=== PATIENT | female | born 1985 | race American Indian/Alaskan Native ===

== ENCOUNTER 2020-07-15 17:45 | Emergency (ER) | payer OTHER, SELFPAY ==
--- NOTE | ~2020-07-15 | XR_ITS ---
EXAMINATION: XR LUMBOSACRAL SPINE CLINICAL INFORMATION: Pain. COMPARISON: None TECHNIQUE: Three views of the lumbosacral spine. FINDINGS: There are 6 [id number] lumbar-type vertebral bodies, likely indicating lumbarization of S1. Straightening of the normal lumbar lordosis, which may be positional or related to muscular spasm. No acute fracture or subluxation. No loss of vertebral body or intervertebral disc height. No lytic or blastic osseous lesion. No abnormal soft tissue calcification. XR/XR lumbar spine 2-3V IMPRESSION: Straightening of the normal lumbar lordosis, which may be positional or related to muscular spasm.
[2020-07-15 17:52] VITALS: BP 106/64; PULSE 105; RESP 18; TEMP 36.7; O2SAT 97
[2020-07-15 18:37] VITALS: BP 112/74; PULSE 109; RESP 16; TEMP 37; O2SAT 100; BMI 19.3
[2020-07-15] MEDS: Ketorolac Tromethamine 30 MG/ML VIAL IM (19:20)
[2020-07-15] MEDS: Lidocaine 4 % Patch ADH..PATCH 1 PATCH TRANSDERMA (19:21)
[2020-07-15] MEDS: oxyCODONE HCl Immed Release 5 MG TABLET PO (19:21)
[2020-07-15 20:00] VITALS: BP 108/66; PULSE 88; RESP 16; TEMP 36.6; O2SAT 98
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
== END 2020-07-15 20:46 | disposition home or self-care (01) ==
PROVIDERS: Emergency Provider Internal Medicine
DX: S39.012A Strain of muscle, fascia and tendon of lower back, initial encounter (principal); X58.XXXA Exposure to other specified factors, initial encounter; Y93.9 Activity, unspecified; Y92.9 Unspecified place or not applicable; Y99.9 Unspecified external cause status; Z79.899 Other long term (current) drug therapy; F17.200 Nicotine dependence, unspecified, uncomplicated; Z71.6 Tobacco abuse counseling
CPT/HCPCS: 72100; 96372; 99284; J1885

== ENCOUNTER 2020-08-11 22:19 | Emergency (ER) | payer OTHER, SELFPAY ==
--- NOTE | ~2020-08-11 | XR_ITS ---
EXAMINATION: CHEST 1 VIEW CLINICAL INFORMATION: Asthma exacerbation. COMPARISON: None. TECHNIQUE: An AP view of the chest is provided. FINDINGS: The cardiac silhouette is not enlarged. The mediastinal and hilar contours are unremarkable. There are neither pleural effusions nor pneumothoraces. There are no consolidations. The osseous structures are unremarkable. XR/XR chest 1V IMPRESSION: No evidence for acute disease.
[2020-08-11 22:21] VITALS: BP 127/89; PULSE 112; RESP 24; TEMP 35.8; O2SAT 100; BMI 20.5
[2020-08-11] MEDS: Albuterol Sulfate 90 MCG 8 GM INHALER 2 PUFF INHALE (22:29)
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
[2020-08-11] MEDS: methylPREDNISolone Sod Succ 125 MG/2 ML VIAL IVPUSH (22:42)
[2020-08-11] MEDS: Magnesium Sulfate/H2O 2 GM/50 ML PIGGYBACK IV (22:46)
--- NOTE | 2020-08-11 22:48 | PC.NURSE ---
magneium infused per sob protocol
--- NOTE | 2020-08-11 23:19 | ED.SOB ---
HPI - SOB/Dyspnea General Chief Complaint: Dyspnea Stated Complaint: Asthma Time Seen by Provider: 08/11/20 22:25 Source: patient Mode of arrival: ambulatory Limitations: no limitations History of Present Illness HPI Narrative: 35-year-old female presents with shortness of breath consistent with asthma exacerbation. States that she has been short of breath for about 3 days, has been using her albuterol inhaler with poor effect. MD elicited complaint: shortness of breath and cough Pertinent past history: asthma Onset (ago): day(s) (3) Timing: progressively worsening Severity: moderate Exacerbating factors: exertion and coughing Relieving factors: nothing Known history of: asthma Associated symptoms: denies other symptoms Treatment prior to arrival: bronchodilator Related Data Home oxygen amount: none Home Medications Medication Instructions Recorded Confirmed albuterol sulfate 1 vial INHALATION Q4H PRN 08/11/20 08/11/20 Previous Rx's Medication Instructions Recorded cyclobenzaprine 5 mg PO TID PRN #14 tab 07/15/20 ibuprofen 800 mg PO Q8H PRN #30 tab 07/15/20 lidocaine 1 patch TOPICAL Q24H PRN #15 ea 07/15/20 methylprednisolone [Medrol] 4 mg PO DAILY #7 tab 07/15/20 benzonatate [Tessalon Perles] 100 mg PO TID PRN #20 cap 08/12/20 prednisone 60 mg PO DAILY 5 Days #15 tab 08/12/20 Allergies Allergy/AdvReac Type Severity Reaction Status Date / Time penicillin V Allergy Unknown hives Verified 01/27/17 00:00 nicotine AdvReac Unknown tachycardia Verified 01/27/17 00:00 Review of Systems Review of Systems: Constitutional: No Fever, No Chills ENT/Mouth: No Hoarseness, No sore throat, No Rhinorrhea Eyes: No Redness, No Discharge, No Vision Changes Cardiovascular: No Chest Pain, positive SOB, positive Dyspnea on Exertion, No Edema Respiratory: positive Cough, No Sputum, positive Wheezing, Gastrointestinal: No Nausea, No Vomiting, No Diarrhea, No abdominal Pain Genitourinary: No Dysuria, No Hematuria Musculoskeletal: No joint pain, No Myalgias Skin: No rash Neuro: No Weakness, No Numbness, No Headache Psych: No anxiety, depression Heme/Lymph: No Bruising, No Bleeding Endocrine: No Polyuria, No Polydipsia Yes all other systems are reviewed and are negative PMFSH Past Medical History Attestation statement: The following information was validated with the patient. Source: old records reviewed Medical History Anxiety Asthma Back pain Migraine Social History Social History Smoking Status: Current every day smoker Advance Directives: No Physical Exam Vital Signs: Vital Signs: Last Vital Signs Temp 98.0 F 08/12/20 00:29 Pulse 100 08/12/20 00:29 Resp 16 08/12/20 00:29 BP 104/74 08/12/20 00:29 Pulse Ox 100 08/12/20 00:29 Body Mass Index 20.5 Appearance: Alert. Oriented X3. Moderate distress. Eyes: Pupils equal, round and reactive to light. ENT: Pharynx normal. Neck: Normal inspection. Neck supple. CVS: Tachycardic heart rate and rhythm. Pulses normal. Respiratory: Tachypneic No respiratory distress. Inspiratory and expiratory wheezing to all lobes with poor air movement Abdomen: Soft and nontender. Skin: Skin warm and dry. Normal skin color. Normal skin turgor. Extremities: No lower extremity edema. Neuro: No motor deficit. No sensory deficit. Course Course Course Narrative: 35-year-old female presents with asthma exacerbation. Plan of care is for ACS rule out, chest x-ray, Solu-Medrol, magnesium, and updraft. Approximately 30 minutes after updraft patient continues to cough, will order Benadryl, Robitussin AC, and Tessalon Perles. Airflow has improved. X-rays are negative, patient no longer coughing, no longer tachypneic respiratory rate at 16, even unlabored, tachycardic secondary to multiple albuterol inhalers use. Patient was referred to pulmonology Dr. Thomson as she may need further management for asthma. Patient verbalized understanding of and agrees plan of care discharge home. MDM - SOB/Dyspnea Differential Diagnosis Differential diagnosis: Likely acute exacerbation of chronic obstructive airways disease and pneumonia Medical Records Attestation: I reviewed the patient's medical records. Lab Data Attestation: I reviewed the patient's lab results. Imaging Data Chest x-ray: Attestation: I personally reviewed and interpreted this imaging study as follows: Radiologist's impression: EXAMINATION: CHEST 1 VIEW CLINICAL INFORMATION: Asthma exacerbation. COMPARISON: None. TECHNIQUE: An AP view of the chest is provided. FINDINGS: The cardiac silhouette is not enlarged. The mediastinal and hilar contours are unremarkable. There are neither pleural effusions nor pneumothoraces. There are no consolidations. The osseous structures are unremarkable. XR/XR chest 1V IMPRESSION: No evidence for acute disease. Discharge Plan Discharge Clinical Impression: Asthma with exacerbation Qualifiers: Asthma severity: moderate Asthma persistence: persistent Qualified Code(s): J45.41 - Moderate persistent asthma with (acute) exacerbation Patient Disposition: Home, Self-Care Instructions: Asthma (ED) Additional Instructions: Te evaluaron para detectar la exacerbaci?n del asma. Por favor, utilice nebulizador de albuterol e inhalador seg?n sea necesario para la dificultad para respirar. [place]?n Perles seg?n sea necesario para la tos. Por favor, siga las instrucciones, no tome m?s de 3 comprimidos en un per?odo de 24 horas. Por favor tome prednisona 60 mg vivian los pr?ximos 5 d?as. Por favor, considere hacer un seguimiento de la neumolog?a, Dr. Hummel?eliu, ya que es posible que necesite un mejor manejo del asma. Дмитрий por elegir nancie departamento de emergencias para rascon evaluaci?n. Por favor, yolanda un seguimiento con el m?dico de atenci?n primaria seg?n sea necesario. Regrese al servicio de emergencias para cualquier s?ntoma nuevo, preocupante o que empeore. You were evaluated for asthma exacerbation. Please use albuterol nebulizer and inhaler as needed for shortness of breath. Take Tessalon Perles as needed for cough. Please follow the directions, do not take more than 3 tablets in 24 hour period. Please take prednisone 60 mg for the next 5 days. Please consider following up with pulmonology, Dr. Thomson, as you may need better asthma management. Thank you for choosing this emergency department for evaluation. Please follow-up with primary care physician as needed. Return to the emergency department for any new, concerning, or worsening symptoms. Prescriptions: New benzonatate [Tessalon Perles] 100 mg capsule 100 mg PO TID PRN (Reason: cough) Qty: 20 RF: 0 prednisone 20 mg tablet 60 mg PO DAILY 5 Days Qty: 15 RF: 0 No Action lidocaine 4 % adhesive patch,medicated 1 patch topical Q24H PRN (Reason: pain) Qty: 15 RF: 0 ibuprofen 800 mg tablet 800 mg PO Q8H PRN (Reason: pain) Qty: 30 RF: 0 cyclobenzaprine 5 mg tablet 5 mg PO TID PRN (Reason: muscle spasm) Qty: 14 RF: 0 methylprednisolone [Medrol] 4 mg tablet 4 mg PO DAILY Qty: 7 RF: 0 albuterol sulfate 0.63 mg/3 mL solution for nebulization 1 vial inhalation Q4H PRN (Reason: wheezing) RF: 0 Referrals: Sudhakar Thomson MD [Physician] - 2 days (Asthma exacerbation, poor management) Interventions: ED Discharge Assessment Last Done: 08/12/20 01:52 Discharge Date/Time: 08/12/20 00:44
[2020-08-12] MEDS: Benzonatate 100 MG CAPSULE 200 MG PO (00:24)
[2020-08-12] MEDS: diphenhydrAMINE HCL 50 MG/ML VIAL 25 MG IVPUSH (00:24)
[2020-08-12] MEDS: guaiFEN/Codeine SF 200/20/10ML 10 ML LIQUID PO (00:24)
[2020-08-12 00:29] VITALS: BP 104/74; PULSE 100; RESP 16; TEMP 36.7; O2SAT 100
--- NOTE | 2020-08-12 01:51 | PC.NURSE ---
PT CALM AFTER MEDICATION ADMINISTRATION PT SPO2 100 ON RA. PT FEELS MORE RELAXED AT THIS TIME AND HER COUGH FIT STOPPED. 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
== END 2020-08-12 00:44 | disposition home or self-care (01) ==
PROVIDERS: Emergency Provider Emergency Medicine
DX: J45.41 Moderate persistent asthma with (acute) exacerbation (principal); Z79.899 Other long term (current) drug therapy; F17.200 Nicotine dependence, unspecified, uncomplicated
CPT/HCPCS: 71045; 96365; 96374; 96375; 99284; J1200; J2930; J3475

== ENCOUNTER 2020-08-14 21:15 | Emergency (ER) | payer OTHER, SELFPAY ==
[2020-08-14 21:53] VITALS: BP 133/81; PULSE 109; RESP 18; TEMP 37; O2SAT 100; BMI 17.7
[2020-08-14 23:49] LABS: COVID-19 Test Negative (Negative); IDNOW Serial# 9DD0AD1C
== END 2020-08-14 23:27 | disposition left against medical advice (07) ==
PROVIDERS: Emergency Provider Emergency Medicine
DX: R05 Cough (principal); Z20.822 Contact with and (suspected) exposure to COVID-19
CPT/HCPCS: 36415; 87635; 99282

== ENCOUNTER 2020-09-28 13:21 | Emergency (ER) | payer OTHER, SELFPAY ==
[2020-09-28 14:22] VITALS: BP 105/61; PULSE 83; RESP 18; TEMP 36.8; O2SAT 100; BMI 20.1
[2020-09-28 15:00] LABS: COVID-19 Test Negative (Negative)
[2020-09-28] MEDS: 0.9 % Sodium Chloride 1,000 ML 999 ML IVCONT (16:01)
[2020-09-28] MEDS: ondansetron HCL 4 MG/2 ML VIAL IVPUSH (16:02)
[2020-09-28 16:09] LABS: MANUAL DIFF FLAG NO
[2020-09-28 16:18] LABS: Basophils Absolute Auto 0.1 X10*3/uL (0.0-0.2); Basophils Percent Auto 1.1 % (0-2); Eosinophils Absolute Auto 0.5 X10*3/uL (0.0-0.4); Eosinophils Percent Auto 9.5 % (0-4); Hemoglobin 12.4 g/dl (12.0-16.0); Imm Gran Abs Auto 0.01 X10*3/uL (0.00-0.03); Imm Gran Pct Auto 0.2 % (0.0-0.4); Lymphocytes Absolute Auto 1.7 X10*3/uL (1.2-4.9); Lymphocytes Percent Auto 32.9 % (20-40); Mean Corpuscular HGB Conc 31.8 g/dl (31.0-35.0); Mean Corpuscular Hemoglobin 27.4 pg (27.0-33.0); Mean Corpuscular Volume 86.1 fL (80-98); Mean Platelet Volume 12.5 fL (9.4-12.3); Monocytes Absolute Auto 0.5 X10*3/uL (0.1-1.2); Monocytes Percent Auto 9.8 % (2-11); Neutrophils Absolute Auto 2.5 X10*3/uL (2.0-8.3); Neutrophils Percent Auto 46.5 % (45-73); Platelet Count 248 X10*3/uL (160-400); Red Blood Count 4.53 X10*6/uL (4.20-5.50); Red Cell Distribution Width 13.2 % (11.0-16.0); White Blood Count 5.3 X10*3/uL (4.8-10.8)
--- NOTE | 2020-09-28 16:31 | ED.NAVMDI ---
HPI - Nausea/Vomiting/Diarrhea General Chief complaint: Nausea/Vomiting/Diarrhea Stated complaint: ABD PAIN HAVEN'T EATEN Time Seen by Provider: 09/28/20 14:55 Source: patient Mode of arrival: ambulatory History of Present Illness HPI Narrative: 35-year-old female with a past medical history of anxiety, asthma, migraines, tubal ligation, ectopic , presenting to the ED complaining of generalized fatigue, lower abdominal discomfort, nausea, vomiting, and decreased p.o. intake x2 weeks. Admits has recently been sexually active with new partner, is 1 week late for menstrual cycle. Admits had 2 ectopic pregnancies S/P tubal ligation, and this feels similar to prior episodes. Denies fever, chills, dysuria/hematuria, diarrhea/constipation, vaginal bleeding/discharge MD elicited complaint: nausea, vomiting and abdominal pain Related Data Home Medications Medication Instructions Recorded Confirmed albuterol sulfate 1 vial INHALATION Q4H PRN 08/11/20 08/11/20 Previous Rx's Medication Instructions Recorded cyclobenzaprine 5 mg PO TID PRN #14 tab 07/15/20 ibuprofen 800 mg PO Q8H PRN #30 tab 07/15/20 lidocaine 1 patch TOPICAL Q24H PRN #15 ea 07/15/20 methylprednisolone [Medrol] 4 mg PO DAILY #7 tab 07/15/20 benzonatate [Tessalon Perles] 100 mg PO TID PRN #20 cap 08/12/20 prednisone 60 mg PO DAILY 5 Days #15 tab 08/12/20 famotidine [Pepcid] 20 mg PO DAILY #14 tab 09/28/20 ondansetron HCl [Zofran] 4 mg PO Q8H PRN #10 tab 09/28/20 Allergies Allergy/AdvReac Type Severity Reaction Status Date / Time penicillin V Allergy Unknown hives Verified 09/28/20 14:22 nicotine AdvReac Unknown tachycardia Verified 09/28/20 14:22 Review of Systems Review of Systems: Constitutional: No Fever, + Chills, + Fatigue, No Malaise Cardiovascular: No Chest Pain, No SOB, No Edema, No Palpitations Respiratory: No Cough, No Sputum, No Dyspnea Gastrointestinal: + Nausea, + Vomiting, No Diarrhea, No Constipation, + Abdominal pain, No Hematochezia, No Melena Genitourinary: No Dysuria, No Urinary Frequency, No Hematuria, No Urinary Incontinence, No Urgency, No Flank Pain Musculoskeletal: No joint pain, No Myalgias, No Joint Swelling Skin: No Skin Lesions, No rash Neuro: + Weakness, No Numbness, No Headache Yes all other systems are reviewed and are negative [facility] Past Medical History Attestation statement: The following information was validated with the patient. Medical History Anxiety Asthma Back pain Migraine Social History Social History Advance Directives: Yes Advance Directives Information Provided: No Advance Directives on File: No Patient : No Physical Exam Vital Signs: Vital Signs: Last Vital Signs Temp 98.4 F 09/28/20 18:15 Pulse 68 09/28/20 18:15 Resp 18 09/28/20 18:15 BP 108/69 09/28/20 18:15 Pulse Ox 100 09/28/20 14:22 Body Mass Index 20.1 Const: General: cooperative and healthy appearing Orientation/consciousness: patient oriented x3 Limitations: no limitations HENMT: Head: Yes normal to inspection Ears: hearing grossly normal bilaterally General nose exam: Normal external nose present Face and sinus: Yes normal facial exam Eyes: General: appearance normal, both eyes and all related structures EOM: EOMs intact bilaterally Neck: Neck: Yes normal visual inspection and Yes no meningeal signs Resp: Effort & Inspection: normal respiratory effort Cardio: Rate: regular rate GI: Inspection: Yes normal to inspection Palpation (GI): Soft to palpation, nontender, no guarding and not rigid : General: Yes no CVA tenderness Back/Spine/Pelvis: Back: no CVA tenderness Skin: Rashes: no rashes Wounds: no wounds Neuro: General: patient oriented x3 and no meningeal signs Gait exam (Neuro): Normal gait present Extrem: General: Yes normal to inspection Course Course Course Narrative: -No leukocytosis, H&H stable, labs otherwise unremarkable, beta quant negative XR chest 1V IMPRESSION: No evidence for acute disease. >> results discussed with patient including worrisome signs and symptoms and strict return precautions. Patient tolerated p.o. melvina yuridia and a Big Mac from [employer] in the ED without any nausea or vomiting MDM - Nausea/Vomiting/Diarrhea MDM Narrative Medical decision making narrative: 35-year-old female with a past medical history of anxiety, asthma, migraines, tubal ligation, ectopic , presenting to the ED complaining of generalized fatigue, lower abdominal discomfort, nausea, vomiting, and decreased p.o. intake x2 weeks. On exam VSS, NAD/nontoxic appearing, abdomen is soft/nontender, no CVAT. Concern for ectopic vs dehydration vs gastroenteritis. Rule out UTIs/infectious etiology Plan: Labs, UA, , IVF, symptomatic treatment, reassess Lab Data Result diagrams: 09/28/20 16:01 09/28/20 16:01 Labs: Lab Results 09/28/20 09/28/20 09/28/20 Range/Units 14:26 16:01 16:01 WBC 5.3 (4.8-10.8) X10*3/uL RBC 4.53 (4.20-5.50) X10*6/uL Hgb 12.4 (12.0-16.0) g/dl Hct 39.0 (37-47) % MCV 86.1 (80-98) fL MCH 27.4 (27.0-33.0) pg MCHC 31.8 (31.0-35.0) g/dl RDW 13.2 (11.0-16.0) % Plt Count 248 (160-400) X10*3/uL MPV 12.5 H (9.4-12.3) fL Immature Gran % (Auto) 0.2 (0.0-0.4) % Neut % (Auto) 46.5 (45-73) % Lymph % (Auto) 32.9 (20-40) % [place] % (Auto) 9.8 (2-11) % Eos % (Auto) 9.5 H (0-4) % Baso % (Auto) 1.1 (0-2) % Lymph # (Auto) 1.7 (1.2-4.9) X10*3/uL [place] # (Auto) 0.5 (0.1-1.2) X10*3/uL Eos # (Auto) 0.5 H (0.0-0.4) X10*3/uL Baso # (Auto) 0.1 (0.0-0.2) X10*3/uL Abs Immat Gran (auto) 0.01 (0.00-0.03) X10*3/uL Absolute Neuts (auto) 2.5 (2.0-8.3) X10*3/uL Absolute Nucleated RBC 0.000 (0.0-0.012) X10*3/uL Nucleated RBC % (auto) 0.0 (0.0-0.2) /100WBC Sodium (135-145) mmol/L Potassium (3.3-5.1) mmol/L Chloride (96-108) mmol/L Carbon Dioxide (22-29) mmol/L Anion Gap (12-20) BUN (9-16) mg/dL Creatinine (0.5-1.4) mg/dL Estim Creat Clear Calc Estimated GFR Random Glucose (60-115) mg/dL Calcium (8.4-10.2) mg/dL Magnesium (1.6-2.6) mg/dL Total Bilirubin (0.0-1.0) mg/dL Direct Bilirubin (0.0-0.5) mg/dL AST (5-31) U/L ALT (0-31) U/L Alkaline Phosphatase (39-117) U/L Total Protein (6.5-8.0) g/dL Albumin (3.5-5.0) g/dL Lipase (8-78) U/L Beta HCG, Quant mIU/mL Urine Color Urine Appearance Urine pH (5.0-8.0) Ur Specific [place] (1.005-1.025) Urine Protein (NEG-TRACE) MG/DL Urine Glucose (UA) (NEG) MG/DL Urine Ketones (NEG) MG/DL Urine Blood (NEG) Urine Nitrite (NEG) Ur Leukocyte Esterase (NEG) Urine Test NEGATIVE (NEGATIVE) COVID-19 (JD) Negative (Negative) COVID-19 Clin Com See Note 09/28/20 09/28/20 Range/Units 16:01 16:01 WBC (4.8-10.8) X10*3/uL RBC (4.20-5.50) X10*6/uL Hgb (12.0-16.0) g/dl Hct (37-47) % MCV (80-98) fL MCH (27.0-33.0) pg MCHC (31.0-35.0) g/dl RDW (11.0-16.0) % Plt Count (160-400) X10*3/uL MPV (9.4-12.3) fL Immature Gran % (Auto) (0.0-0.4) % Neut % (Auto) (45-73) % Lymph % (Auto) (20-40) % [place] % (Auto) (2-11) % Eos % (Auto) (0-4) % Baso % (Auto) (0-2) % Lymph # (Auto) (1.2-4.9) X10*3/uL [place] # (Auto) (0.1-1.2) X10*3/uL Eos # (Auto) (0.0-0.4) X10*3/uL Baso # (Auto) (0.0-0.2) X10*3/uL Abs Immat Gran (auto) (0.00-0.03) X10*3/uL Absolute Neuts (auto) (2.0-8.3) X10*3/uL Absolute Nucleated RBC (0.0-0.012) X10*3/uL Nucleated RBC % (auto) (0.0-0.2) /100WBC Sodium 139 (135-145) mmol/L Potassium 4.3 (3.3-5.1) mmol/L Chloride 104 (96-108) mmol/L Carbon Dioxide 28 (22-29) mmol/L Anion Gap 11 L (12-20) BUN 11 (9-16) mg/dL Creatinine 0.96 (0.5-1.4) mg/dL Estim Creat Clear Calc 72.5 Estimated GFR > 60 Random Glucose 81 (60-115) mg/dL Calcium 10.0 (8.4-10.2) mg/dL Magnesium 2.2 (1.6-2.6) mg/dL Total Bilirubin 0.6 (0.0-1.0) mg/dL Direct Bilirubin 0.2 (0.0-0.5) mg/dL AST 12 (5-31) U/L ALT 11 (0-31) U/L Alkaline Phosphatase 52 (39-117) U/L Total Protein 7.5 (6.5-8.0) g/dL Albumin 4.5 (3.5-5.0) g/dL Lipase 64 (8-78) U/L Beta HCG, Quant < 2 mIU/mL Urine Color YELLOW Urine Appearance CLEAR Urine pH 7.0 (5.0-8.0) Ur Specific [place] 1.025 (1.005-1.025) Urine Protein TRACE (NEG-TRACE) MG/DL Urine Glucose (UA) NEG (NEG) MG/DL Urine Ketones NEG (NEG) MG/DL Urine Blood NEG (NEG) Urine Nitrite NEG (NEG) Ur Leukocyte Esterase NEG (NEG) Urine Test (NEGATIVE) COVID-19 (JD) (Negative) COVID-19 Clin Com Discharge Plan Discharge Clinical Impression: Nausea & vomiting Qualifiers: Vomiting type: unspecified Vomiting Intractability: non-intractable Qualified Code(s): R11.2 - Nausea with vomiting, unspecified Patient Disposition: Home, Self-Care Instructions: Acute Nausea and Vomiting (ED) Additional Instructions: Your blood work was reassuring today in the emergency department. Your test was negative. Zofran as an antinausea medication, take as needed. Pepcid will help with the acid reflux. Make sure your staying hydrated at home. Follow up with her doctor. If her symptoms persist or worsen, become unbearable, you are unable to eat or drink please return to the ED Rascon an?lisis de ena fue reconfortante hoy en el departamento de emergencias. Tu prueba de embarazo fue negativa. Zofran sean medicamento contra las n?useas, t?wilder seg?n sea necesario. Pepcid ayudar? con el reflujo ?cido. Aseg?rate de mantenerte hidratado en casa. Sarai un seguimiento con rascon m?dico. Si kevin s?ntomas persisten o empeoran, se vuelven insoportables, no puede comer ni beber, vuelva al servicio de urgencias. Prescriptions: New ondansetron HCl [Zofran] 4 mg tablet 4 mg PO Q8H PRN (Reason: nausea and vomiting) Qty: 10 RF: 0 famotidine [Pepcid] 20 mg tablet 20 mg PO DAILY Qty: 14 RF: 0 No Action lidocaine 4 % adhesive patch,medicated 1 patch topical Q24H PRN (Reason: pain) Qty: 15 RF: 0 ibuprofen 800 mg tablet 800 mg PO Q8H PRN (Reason: pain) Qty: 30 RF: 0 cyclobenzaprine 5 mg tablet 5 mg PO TID PRN (Reason: muscle spasm) Qty: 14 RF: 0 methylprednisolone [Medrol] 4 mg tablet 4 mg PO DAILY Qty: 7 RF: 0 albuterol sulfate 0.63 mg/3 mL solution for nebulization 1 vial inhalation Q4H PRN (Reason: wheezing) RF: 0 benzonatate [Tessalon Perles] 100 mg capsule 100 mg PO TID PRN (Reason: cough) Qty: 20 RF: 0 prednisone 20 mg tablet 60 mg PO DAILY 5 Days Qty: 15 RF: 0 Referrals: Physician,Unknown [Primary Care Provider] - 2 days Interventions: ED Discharge Assessment Last Done: 09/28/20 18:35 Discharge Date/Time: 09/28/20 18:37 Print Language: Macedonian
[2020-09-28 16:36] LABS: Alanine Aminotransferase 11 U/L (0-31); Albumin Level 4.5 g/dL (3.5-5.0); Alkaline Phosphatase 52 U/L (39-117); Anion Gap 11 (12-20); Aspartate Amino Transferase 12 U/L (5-31); Bilirubin Direct 0.2 mg/dL (0.0-0.5); Bilirubin Total 0.6 mg/dL (0.0-1.0); Blood Urea Nitrogen 11 mg/dL (9-16); Carbon Dioxide 28 mmol/L (22-29); Chloride 104 mmol/L (96-108); Creatinine Clr Calc Pharmacy 72.5; Estimated Glomerular Filt Rate > 60; Glucose Random 81 mg/dL (60-115); Lipase 64 U/L (8-78); Magnesium 2.2 mg/dL (1.6-2.6); Potassium 4.3 mmol/L (3.3-5.1); Sodium 139 mmol/L (135-145); Total Protein 7.5 g/dL (6.5-8.0)
[2020-09-28 16:42] LABS: HCG Quantitative < 2 mIU/mL
[2020-09-28 16:44] LABS: UPreg QC Valid YES; Urine Pregnancy NEGATIVE (NEGATIVE)
[2020-09-28 18:15] VITALS: BP 108/69; PULSE 68; RESP 18; TEMP 36.9
[2020-09-28 20:24] LABS: Appearance Urine CLEAR; Color Urine YELLOW; Glucose Urine UA NEG (NEG); Leukocyte Esterase Urine NEG (NEG); Nitrite Urine NEG (NEG); Specific Gravity - Urine 1.025 (1.005-1.025); Urine Blood NEG (NEG); Urine Ketones NEG (NEG); Urine Protein TRACE MG/DL (NEG-TRACE)
== END 2020-09-28 18:37 | disposition home or self-care (01) ==
PROVIDERS: Physician Assistant; Emergency Provider Emergency Medicine
DX: R11.2 Nausea with vomiting, unspecified (principal); R10.30 Lower abdominal pain, unspecified; Z20.822 Contact with and (suspected) exposure to COVID-19; J45.909 Unspecified asthma, uncomplicated; F41.9 Anxiety disorder, unspecified; Z98.51 Tubal ligation status
CPT/HCPCS: 36415; 80048; 80076; 81003; 81025; 83690; 83735; 84702; 85025; 87635; 96361; 96374; 99284; J2405

== ENCOUNTER 2020-12-12 10:48 | Outpatient (REF) | payer OTHER, SELFPAY | END 2020-12-12 10:49 | disposition home or self-care (01) | LOC: HO.LAB 10:48 | PROVIDERS: Visit Provider Internal Medicine | DX: Z20.822 Contact with and (suspected) exposure to COVID-19 (principal) | CPT/HCPCS: C9803; U0003; U0005 ==

== ENCOUNTER 2021-01-08 18:56 | Emergency (ER) | payer OTHER, SELFPAY | END 2021-01-08 20:50 | disposition left against medical advice (07) | PROVIDERS: Emergency Provider Emergency Medicine | DX: M25.579 Pain in unspecified ankle and joints of unspecified foot (principal) ==

== ENCOUNTER 2021-02-17 02:29 | Emergency (ER) | payer OTHER, SELFPAY ==
[2021-02-17 02:31] VITALS: BP 148/86; PULSE 95; RESP 22; TEMP 36.7; O2SAT 100
[2021-02-17] MEDS: methylPREDNISolone Sod Succ 125 MG/2 ML VIAL IVPUSH (02:50)
--- NOTE | 2021-02-17 02:50 | ED_ITS ---
HPI - SOB/Dyspnea General Chief Complaint: Dyspnea Stated Complaint: Sob Time Seen by Provider: 02/17/21 02:36 Source: patient Mode of arrival: ambulatory Limitations: no limitations History of Present Illness HPI Narrative: Patient comes emergency room complaining of an asthma exacerbation. It started approximately 1 hour prior to arrival. Patient states she has been out of her asthma medications. Related Data Home Medications Medication Instructions Recorded Confirmed albuterol sulfate 0.63 mg/3 mL 1 vial INHALATION Q4H PRN 08/11/20 08/11/20 solution for nebulization Previous Rx's Medication Instructions Recorded cyclobenzaprine 5 mg tablet 5 mg PO TID PRN #14 tab 07/15/20 ibuprofen 800 mg tablet 800 mg PO Q8H PRN #30 tab 07/15/20 lidocaine 4 % topical patch 1 patch TOPICAL Q24H PRN #15 ea 07/15/20 methylprednisolone 4 mg tablet 4 mg PO DAILY #7 tab 07/15/20 (Medrol) benzonatate 100 mg capsule 100 mg PO TID PRN #20 cap 08/12/20 (Tessalon Perles) prednisone 20 mg tablet 60 mg PO DAILY 5 Days #15 tab 08/12/20 famotidine 20 mg tablet (Pepcid) 20 mg PO DAILY #14 tab 09/28/20 ondansetron HCl 4 mg tablet 4 mg PO Q8H PRN #10 tab 09/28/20 (Zofran) albuterol sulfate 90 mcg/actuation 2 puff INHALATION Q4-6H PRN #8.5 g 02/17/21 aerosol inhaler Allergies Allergy/AdvReac Type Severity Reaction Status Date / Time penicillin V Allergy Unknown hives Verified 09/28/20 14:22 nicotine AdvReac Unknown tachycardia Verified 09/28/20 14:22 Review of Systems Review of Systems: Constitutional : No Weight loss, No Fever, No Chills, No Night Sweats, No Fatigue, No Malaise ENT/Mouth : No Hearing loss, No Ear Pain, No Nasal Congestion, No Sinus Pain, No Hoarseness, No sore throat, No Rhinorrhea, No Swallowing Difficulty Eyes: No Eye Pain, No Swelling, No Redness, No Foreign Body, No Discharge, No Vision Changes Cardiovascular : No Chest Pain, No SOB, No Dyspnea on Exertion, No Orthopnea, No Edema, No Palpitations Respiratory : No Cough, No Sputum, complaining of Wheezing, No Smoke Exposure Gastrointestinal : No Nausea, No Vomiting, No Diarrhea, No Constipation, No abdominal Pain, No Hematochezia, No Melena Genitourinary : no irregular bleeding, No Dysuria, No Urinary Frequency, No Hematuria, No Urinary Incontinence, No Urgency, No Flank Pain, No Urinary Flow Changes, No Hesitancy Musculoskeletal : No joint pain, No Myalgias, No Joint Swelling Skin : No Skin Lesions, No rash Neuro : No Weakness, No Numbness, No Paresthesias, No Loss of Consciousness, No Dizziness, No Headache Psych : No Anxiety/Panic, No Depression, No SI/HI/AH/VH, No Social Issues, Heme/Lymph: No Bruising, No Bleeding,No Lymphadenopathy Endocrine : No Polyuria, No Polydipsia, No Temperature Intolerance PMFSH Past Medical History Medical History Anxiety Asthma Back pain Migraine Social History Social History Advance Directives: No Advance Directives Information Provided: No Patient : No Physical Exam Vital Signs: Vital Signs: Last Vital Signs Temp 98.0 F 02/17/21 02:31 Pulse 95 02/17/21 02:31 Resp 22 H 02/17/21 02:31 BP 148/86 H 02/17/21 02:31 Pulse Ox 100 02/17/21 02:31 Body Mass Index 20.0 Const: Other: Appearance: Alert. Oriented X3. Extremely anxious Eyes: Pupils equal, round and reactive to light. ENT: Pharynx normal. Forceful laryngeal wheezing Neck: Normal inspection. Neck supple. No lymph nodes noted. No crepitus CVS: Normal heart rate and rhythm. Pulses normal. Normal S1 and S2 Respiratory: No respiratory distress. Breath sounds normal. No Wheezing. No rales Abdomen: Soft and nontender. No rigidity. No distention. good BS x4 Skin: Skin warm and dry. Normal skin color. Normal skin turgor. Extremities: No lower extremity edema. No lower extremity edema. No Lacerations. No Rash Neuro: Oriented X 3. No motor deficit. No sensory deficit. Moving all extermities. No slurred speech. Course Course Course Narrative: Patient's oxygen saturation is 100%, respiratory 22, on lung auscultation, patient is not wheezing. Patient is extremely anxious, seems that she is self inflicting wheezing pharyngeal no wheezes. When explained to the patient that her lungs are clear, has good air movement and her oxygen saturation is perfect at 100%, patient calmed down and the laryngeal wheezing noises stopped. Patient was given 1 mg of Ativan. On physical exam before discharge, patient's vital stable, oxygen saturation 100% on room air, moving air completely normal, no wheezing. I sent to the patient's pharmacy a refill for albuterol. Patient did not have an asthma exacerbation, prednisone not recommended at this time Discharge Plan Discharge Clinical Impression: Panic attack Patient Disposition: Home, Self-Care Instructions: Panic Attack (ED) Additional Instructions: Please follow-up with your primary care physician tomorrow. If you have any worsening or new symptoms, please return to the emergency room or call 911 Prescriptions: New albuterol sulfate 90 mcg/actuation HFA aerosol inhaler 2 puff inhalation Q4-6H PRN (Reason: shortness of breath or wheezing) Qty: 8. 5 RF: 0 No Action lidocaine 4 % adhesive patch,medicated 1 patch topical Q24H PRN (Reason: pain) Qty: 15 RF: 0 ibuprofen 800 mg tablet 800 mg PO Q8H PRN (Reason: pain) Qty: 30 RF: 0 cyclobenzaprine 5 mg tablet 5 mg PO TID PRN (Reason: muscle spasm) Qty: 14 RF: 0 methylprednisolone [Medrol] 4 mg tablet 4 mg PO DAILY Qty: 7 RF: 0 ondansetron HCl [Zofran] 4 mg tablet 4 mg PO Q8H PRN (Reason: nausea and vomiting) Qty: 10 RF: 0 famotidine [Pepcid] 20 mg tablet 20 mg PO DAILY Qty: 14 RF: 0 albuterol sulfate 0.63 mg/3 mL solution for nebulization 1 vial inhalation Q4H PRN (Reason: wheezing) RF: 0 benzonatate [Tessalon Perles] 100 mg capsule 100 mg PO TID PRN (Reason: cough) Qty: 20 RF: 0 prednisone 20 mg tablet 60 mg PO DAILY 5 Days Qty: 15 RF: 0
[2021-02-17] MEDS: LORazepam 2 MG/ML VIAL 1 MG IVPUSH (02:58)
[2021-02-17 03:58] VITALS: BP 114/77; PULSE 62; RESP 15; O2SAT 100
== END 2021-02-17 04:07 | disposition home or self-care (01) ==
PROVIDERS: Emergency Provider Emergency Medicine
DX: F43.0 Acute stress reaction (principal); R06.02 Shortness of breath; Z79.899 Other long term (current) drug therapy
CPT/HCPCS: 96374; 96375; 99284; J2060; J2930

== ENCOUNTER 2021-04-04 16:50 | Emergency (ER) | payer OTHER, SELFPAY ==
[2021-04-04 17:44] VITALS: BP 130/85; PULSE 93; RESP 18; TEMP 36.8; O2SAT 100; BMI 20.7
--- NOTE | 2021-04-04 19:05 | ED_ITS ---
HPI - Headache General Chief Complaint: Headache Stated Complaint: migraine x4days Time Seen by Provider: 04/04/21 18:43 Source: patient and family Mode of arrival: ambulatory Limitations: no limitations History of Present Illness HPI Narrative: 35-year-old female with a history of migraines who presents emergency department for evaluation migraine headache. The patient states that the migraine started 4 days prior, headache came on gradually and got progressively worse. She states the headache is a constant, pressure, throbbing pain located throughout her entire head. She states that on a scale of 1-10, th e pain is ?100 out of 10 . She has associated nausea and vomiting. She states she has had no appetite. She denied fever, chills, rhinorrhea, cough, chest pain, shortness of breath, numbness or weakness. She states that she gets several migraines per month but this 1 did not go away with [id number] medications such as ibuprofen, Aleve, and Tylenol. Related Data Home Medications Medication Instructions Recorded Confirmed albuterol sulfate 0.63 mg/3 mL 1 vial INHALATION Q4H PRN 08/11/20 08/11/20 solution for nebulization Previous Rx's Medication Instructions Recorded cyclobenzaprine 5 mg tablet 5 mg PO TID PRN #14 tab 07/15/20 ibuprofen 800 mg tablet 800 mg PO Q8H PRN #30 tab 07/15/20 lidocaine 4 % topical patch 1 patch TOPICAL Q24H PRN #15 ea 07/15/20 methylprednisolone 4 mg tablet 4 mg PO DAILY #7 tab 07/15/20 (Medrol) benzonatate 100 mg capsule 100 mg PO TID PRN #20 cap 08/12/20 (Tessalon Perles) prednisone 20 mg tablet 60 mg PO DAILY 5 Days #15 tab 08/12/20 famotidine 20 mg tablet (Pepcid) 20 mg PO DAILY #14 tab 09/28/20 ondansetron HCl 4 mg tablet 4 mg PO Q8H PRN #10 tab 09/28/20 (Zofran) albuterol sulfate 90 mcg/actuation 2 puff INHALATION Q4-6H PRN #8.5 g 02/17/21 aerosol inhaler metoclopramide HCl 10 mg tablet 10 mg PO Q6H PRN #14 tab 04/04/21 (Reglan) Allergies Allergy/AdvReac Type Severity Reaction Status Date / Time penicillin V Allergy Unknown hives Verified 04/04/21 17:44 nicotine AdvReac Unknown tachycardia Verified 04/04/21 17:44 Review of Systems Review of Systems: Yes all other systems are reviewed and are negative [facility] Past Medical History [facility] Narrative: Social history: The patient does smoke cigarettes. She occasionally drinks alcohol. She denies drug use. Medical History Anxiety Asthma Back pain Migraine Social History Social History Advance Directives: No Advance Directives Information Provided: Yes Patient : No Physical Exam Vital Signs: Vital Signs: Last Vital Signs Temp 98.9 F 04/04/21 20:25 Pulse 88 04/04/21 20:25 Resp 18 04/04/21 20:25 BP 119/80 04/04/21 20:25 Pulse Ox 99 04/04/21 20:25 BMI result Body Mass Index 20.7 Const: Other: Awake, alert, female patient, she appears to be in moderate distress secondary to her headache. HENMT: Head: Yes normal to inspection, Yes normocephalic and Yes atraumatic Ears: external ears normal General nose exam: Normal external nose present Face and sinus: Yes normal facial exam Mouth: Normal oral and palatal mucosa present Throat: Yes posterior oropharynx normal Eyes: General: appearance normal, both eyes and all related structures Pupils: Equal, round and reactive pupils present Neck: Neck: Yes normal visual inspection, Yes no lymphadenopathy, Yes trachea midline and Yes supple Chest: Chest palpation & inspection: normal inspection of the chest and normal palpation of entire chest wall Resp: Effort & Inspection: normal respiratory effort and able to speak in complete sentences Auscultation: clear to auscultation bilaterally Cardio: Rate: regular rate Rhythm: regular rhythm Heart sounds: S1 normal heart sound present, S2 normal heart sound present and no murmurs GI: Inspection: Yes normal to inspection Palpation (GI): Soft to palpation, nontender and no guarding Auscultation: normal bowel sounds : General: Yes no CVA tenderness Back/Spine/Pelvis: Back: no CVA tenderness Skin: General skin exam: no rashes or lesions noted Neuro: Cranial nerves: Yes CN's II-XII intact bilaterally and Yes Equal, round and reactive pupils present Cognition (Neuro): normal cognition Motor exam (neuro): 5/5 motor strength present throughout Extrem: General: Yes normal to inspection Psych: Appearance: grossly normal Speech and movement: Normal speech and movement present Affect: normal affect Attitude: cooperative Thought process: Normal thought process present Thought content: Normal thought content present Course Course Course Narrative: 35-year-old female with a history migraine headaches who presents emergency department for a migraine headache x4 days. The patient's physical examination did reveal that she was in distress secondary to her pain otherwise was unremarkable. Patient's migraine and was treated with Toradol 15 mg IV, Benadryl 50 mg IV, Reglan 10 mg IV and normal saline x1 L. 2051: Patient is feeling significantly better. The patient's headache is resolved. Patient will be treated with the following medications every 6 hours: Reglan 10 mg, Benadryl 50 mg, and Excedrin migraine 2 pills. She was given verbal and printed instructions and discharged home. Discharge Plan Discharge Clinical Impression: Migraine Qualifiers: Migraine type: without aura Status migrainosus presence: without status migrainosus Intractability: not intractable Qualified Code(s): G43.009 - Migraine without aura, not intractable, without status migrainosus Patient Disposition: Home, Self-Care Instructions: Migraine Headache (ED) Additional Instructions: Your symptoms are consistent with a migraine. I want you to take the following 3 medications together every 6 hours as needed for headache, nausea or vomiting. Reglan (metoclopramide) in 10 mg, 1 pill Benadryl 25 mg, 2 pills Excedrin migraine, 2 pills. After you take these medications, lie down in a dark quiet room and try to fall asleep. These medications will make you sleepy, do not drive or work after taking these medications. Follow-up with your doctor in 2 days. Please return to the emergency department if your symptoms get worse or if you develop any symptoms that are concerning to you. Prescriptions: New metoclopramide HCl [Reglan] 10 mg tablet 10 mg PO Q6H PRN (Reason: nausea and vomiting) Qty: 14 RF: 0 No Action lidocaine 4 % adhesive patch,medicated 1 patch topical Q24H PRN (Reason: pain) Qty: 15 RF: 0 ibuprofen 800 mg tablet 800 mg PO Q8H PRN (Reason: pain) Qty: 30 RF: 0 cyclobenzaprine 5 mg tablet 5 mg PO TID PRN (Reason: muscle spasm) Qty: 14 RF: 0 methylprednisolone [Medrol] 4 mg tablet 4 mg PO DAILY Qty: 7 RF: 0 ondansetron HCl [Zofran] 4 mg tablet 4 mg PO Q8H PRN (Reason: nausea and vomiting) Qty: 10 RF: 0 famotidine [Pepcid] 20 mg tablet 20 mg PO DAILY Qty: 14 RF: 0 albuterol sulfate 0.63 mg/3 mL solution for nebulization 1 vial inhalation Q4H PRN (Reason: wheezing) RF: 0 benzonatate [Tessalon Perles] 100 mg capsule 100 mg PO TID PRN (Reason: cough) Qty: 20 RF: 0 prednisone 20 mg tablet 60 mg PO DAILY 5 Days Qty: 15 RF: 0 albuterol sulfate 90 mcg/actuation HFA aerosol inhaler 2 puff inhalation Q4-6H PRN (Reason: shortness of breath or wheezing) Qty: 8.5 RF: 0
[2021-04-04] MEDS: 0.9 % Sodium Chloride 1,000 ML 999 ML IV (19:32)
[2021-04-04] MEDS: Metoclopramide HCl 10 MG/2 ML VIAL IVPUSH (19:33)
[2021-04-04] MEDS: Ketorolac Tromethamine 15 MG/ML VIAL IVPUSH (19:34)
[2021-04-04] MEDS: diphenhydrAMINE HCL 50 MG/ML VIAL IVPUSH (19:35)
[2021-04-04 20:25] VITALS: BP 119/80; PULSE 88; RESP 18; TEMP 37.2; O2SAT 99
== END 2021-04-04 21:04 | disposition home or self-care (01) ==
PROVIDERS: Emergency Provider Emergency Medicine Emergency Medical Services
DX: G43.009 Migraine without aura, not intractable, without status migrainosus (principal); J45.909 Unspecified asthma, uncomplicated
CPT/HCPCS: 96361; 96374; 96375; 99283; 99284; J1200; J1885; J2765

== ENCOUNTER 2021-11-09 11:45 | Emergency (ER) | payer OTHER, SELFPAY ==
--- NOTE | 2021-11-09 | ECG_ITS ---
Test Reason : asthma Blood Pressure : / mmHG Vent. Rate : 099 BPM Atrial Rate : 099 BPM P-R Int : 100 ms QRS Dur : 072 ms QT Int : 344 ms P-R-T Axes : 045 043 055 degrees QTc Int : 441 ms Sinus rhythm with sinus arrhythmia with short CO Otherwise normal ECG No previous ECGs available Referred By: Generic ED Physician Electronically Signed By:DENNIS ALEJANDRA MD
--- NOTE | ~2021-11-09 | XR_ITS ---
EXAMINATION: XR CHEST CLINICAL INFORMATION: Excessive coughing. COMPARISON: None TECHNIQUE: 2 views of the chest were obtained. FINDINGS: The lungs are well-expanded and clear. The heart size and pulmonary vascularity is normal. No gross bony abnormality. There are no radiopaque nipple artifacts. XR/XR chest 2V IMPRESSION: Unremarkable chest exam.
[2021-11-09 11:48] VITALS: BP 111/73; PULSE 124; RESP 24; TEMP 36.6; O2SAT 99; BMI 19.5
[2021-11-09 12:07] LABS: MANUAL DIFF FLAG NO
[2021-11-09 12:08] LABS: Basophils Absolute Auto 0.1 X10*3/uL (0.0-0.2); Basophils Percent Auto 1.2 % (0-2); Eosinophils Absolute Auto 0.5 X10*3/uL (0.0-0.4); Eosinophils Percent Auto 10.1 % (0-4); Hematocrit 39.2 % (37.0-47.0); Hemoglobin 12.4 g/dl (12.0-16.0); Imm Gran Abs Auto 0.01 X10*3/uL (0.00-0.03); Imm Gran Pct Auto 0.2 % (0.0-0.4); Lymphocytes Absolute Auto 1.6 X10*3/uL (1.2-4.9); Mean Corpuscular HGB Conc 31.6 g/dl (31.0-35.0); Mean Corpuscular Hemoglobin 26.9 pg (27.0-33.0); Mean Platelet Volume 12.2 fL (9.4-12.3); Monocytes Absolute Auto 0.7 X10*3/uL (0.1-1.2); Monocytes Percent Auto 13.6 % (2-11); Neutrophils Absolute Auto 2.3 x10*3/uL (2.0-8.3); Neutrophils Percent Auto 44.9 % (45-73); Platelet Count 257 X10*3/uL (160-400); Red Blood Count 4.61 X10*6/uL (4.20-5.50); Red Cell Distribution Width 14.1 % (11.0-16.0); White Blood Count 5.2 X10*3/uL (4.8-10.8)
[2021-11-09 12:24] LABS: Anion Gap 12 (12-20); Blood Urea Nitrogen 9 mg/dL (9-16); Calcium 8.8 mg/dL (8.4-10.2); Carbon Dioxide 24 mmol/L (22-29); Chloride 107 mmol/L (96-108); Estimated Glomerular Filt Rate > 60; Glucose Random 100 mg/dL (60-115); Potassium 3.9 mmol/L (3.3-5.1); Sodium 139 mmol/L (135-145)
[2021-11-09 12:29] LABS: Troponin-I High Sensitivity < 3.5 ng/L (<3.5-17.0)
[2021-11-09 13:02] LABS: Influenza A PCR NEGATIVE (Negative); Influenza B PCR NEGATIVE (Negative); Resp Syncy Virus RNA Qual PCR NEGATIVE (Negative); SARS COV2 PCR INHOUSE NEGATIVE (Negative)
== END 2021-11-09 15:15 | disposition left against medical advice (07) ==
PROVIDERS: Emergency Provider Emergency Medicine
DX: J45.909 Unspecified asthma, uncomplicated (principal); Z20.822 Contact with and (suspected) exposure to COVID-19
CPT/HCPCS: 0241U; 36415; 71046; 80048; 84484; 85025; 93005; 99281; 99283

== ENCOUNTER 2022-01-03 04:35 | Emergency (ER) | payer OTHER, SELFPAY ==
[2022-01-03 04:47] VITALS: BP 127/73; PULSE 103; RESP 16; TEMP 36.3; O2SAT 99; BMI 43.0
== END 2022-01-03 06:20 | disposition left against medical advice (07) ==
PROVIDERS: Emergency Provider Emergency Medicine
DX: G43.909 Migraine, unspecified, not intractable, without status migrainosus (principal)
CPT/HCPCS: 99281

== ENCOUNTER 2023-10-31 18:32 | Emergency (ER) | payer MEDICAID, SELFPAY ==
[2023-10-31 18:40] VITALS: BP 102/76; PULSE 117; RESP 20; TEMP 36.6; O2SAT 100; BMI 21.6
--- NOTE | 2023-10-31 18:41 | ECG_ITS ---
Test Reason : NVD Blood Pressure : / mmHG Vent. Rate : 092 BPM Atrial Rate : 092 BPM P-R Int : 118 ms QRS Dur : 076 ms QT Int : 356 ms P-R-T Axes : 059 047 051 degrees QTc Int : 440 ms Normal sinus rhythm Normal ECG When compared with ECG of 09-NOV-2021 13:50, No significant change was found Referred By: Elana Cohn Electronically Signed By:OMAR SALAS
--- NOTE | 2023-10-31 18:50 | ED_ITS ---
HPI - General Adult General Chief complaint: Upper Respiratory Symptoms Stated complaint: Flu like symptoms Time Seen by Provider: 10/31/23 20:59 Source: patient and autotransfusionist Mode of arrival: ambulatory Limitations: no limitations History of Present Illness ED Provider: DR. Gonsalez HPI narrative: 38-year-old female came in for evaluation of multiple symptoms. Feels pressure on the left side of her forehead and left maxillary sinus, nasal discharge, patient also noticed nasal bleeding. Patient's daughter tested positive for COVID patient overall does not feel well and feels generalized weakness. Related Data Home Medications ?Medication ?Instructions ?Recorded ?Confirmed albuterol sulfate 0.63 mg/3 mL 1 vial inhalation Q4H PRN wheezing 08/11/20 08/11/20 solution for nebulization Previous Rx's ?Medication ?Instructions ?Recorded cyclobenzaprine 5 mg tablet 5 mg PO TID PRN muscle spasm #14 07/15/20 tabs ibuprofen 800 mg tablet 800 mg PO Q8H PRN pain #30 tabs 07/15/20 lidocaine 4 % topical patch 1 patch topical Q24H PRN pain #15 07/15/20 ea methylprednisolone 4 mg tablet 4 mg PO DAILY #7 tabs 07/15/20 (Medrol) benzonatate 100 mg capsule 100 mg PO TID PRN cough #20 caps 08/12/20 (Tessyon Perlarelis) prednisone 20 mg tablet 60 mg (3 x 20 mg) PO DAILY 5 days 08/12/20 #15 tabs famotidine 20 mg tablet (Pepcid) 20 mg PO DAILY #14 tabs 09/28/20 ondansetron HCl 4 mg tablet 4 mg PO Q8H PRN nausea and 09/28/20 (Zofran) vomiting #10 tabs albuterol sulfate 90 mcg/actuation 2 puff inhalation Q4-6H PRN 02/17/21 aerosol inhaler shortness of breath or wheezing #8.5 grams metoclopramide HCl 10 mg tablet 10 mg PO Q6H PRN nausea and 04/04/21 (Reglan) vomiting #14 tabs amoxicillin 875 mg-potassium 1 tab PO BID #14 tabs 10/31/23 clavulanate 125 mg tablet Allergies Allergy/AdvReac Type Severity Reaction Status Date / Time penicillin V Allergy Unknown hives Verified 10/31/23 18:44 Review of Systems Review of Systems: All other systems are reviewed and are negative Constitutional: Reports as per HPI and Reports no additional constitutional complaints Eyes: Reports as per HPI and Reports no additional eye complaints Reports system reviewed and no additional complaints, except as documented Cardiovascular: Reports as per HPI and Reports no additional cardiovascular complaints Respiratory: Reports as per HPI and Reports no additional respiratory complaints Gastrointestinal: Reports as per HPI and Reports no additional gastrointestinal complaints Genitourinary: Reports no additional female genitourinary complaints Musculoskeletal: Reports no additional musculoskeletal complaints Skin/Breast: Reports system reviewed and no additional complaints, except as docu Psychiatric: Reports no additional psychiatric complaints Endocrine: Reports no additional endocrine complaints Hematologic/Lymphatic: Reports no additional hematologic/lymphatic complaints Allergic/Immunologic: Reports no additional allergic/immunologic complaints Reports system reviewed and no additional complaints, except as documented and Reports Abnormal speech present [facility] Past Medical History Medical History Anxiety Asthma Migraine Back pain Social History Social History Advance Directives: No Advance Directives Information Provided: No Do you have a plan to hurt others: No Plan Physical Exam ED Vital Signs: Vital Signs - 24 hr 10/31/23 18:40 10/31/23 20:59 Temperature 98 F 98.7 F Pulse Rate 117 H 73 Respiratory Rate 20 17 Blood Pressure 102/76 106/63 Pulse Oximetry 100 100 Oxygen Delivery Method Room Air Room Air BMI result Body Mass Index 21.6 Vital signs have been reviewed and appear to be correct. Blood pressure elevated. Heart rate normal. Respiratory rate normal. Temperature normal. Oxygen saturation normal. Appearance: Alert. Oriented X3. No acute distress. Head: Normal external exam. Normocephalic. Atraumatic. No Sy signs noted. No raccoon eyes noted Eyes: PERRLA. EOMI. Conjunctiva and sclera normal. Eyelids normal. ENT: TM's Normal. Pharynx normal. Uvula midline. Moist mucous membranes. No trismus noted. Tenderness with pressure over left frontal and left maxillary sinuses. Neck: Normal inspection. Neck supple. FROM. No adenopathy. Thyroid Normal. No meningeal signs. No neck mass noted. CVS: Normal heart rate and rhythm. Heart sound normal. No murmurs noted. Pulses normal throughout. Respiratory: No respiratory distress. Painless inspiration. Breath sounds normal. No wheezes/rales/rhonchi noted. Chest nontender. No accessory muscle usage noted or decreased air movement noted. Abdomen: Soft and nontender. Bowel sounds normal in all 4 quadrants. No distention noted. No organomegaly noted. No visible injury noted. Back: No CVA tenderness. Full range of motion noted. Skin: Skin warm and dry. Normal skin color. Normal skin turgor. No rashes/lesions/lacerations noted. Extremities: No lower extremity edema. Extremities exhibit normal range of motion. Extremities nontender. Neuro: Oriented X 3. Cranial nerve exam: II-XII are grossly intact No motor deficit. No sensory deficit. Reflexes normal. Course Course Course Narrative: This is an RME done by TYLOR Cohn: Additional HPI, ROS, PE not included below will be deferred to primary provider. 38-year-old female presents requesting COVID test she reports her bodies hurting her daughter's COVID positive she just has not been feeling well she has requesting a ?mineral infusion?. Patient reports chest heaviness and cough. Reevaluation(s) Reevaluation #1: Acute sinusitis frontal and maxillary sinuses will start on Augmentin (patient reported that she received amoxicillin in the past with no allergy. Will try it in the emergency department and watched the patient for allergy. Time: 21:18 Medications Administered Discontinued Medications Generic Name Dose Route Start Last Admin Trade Name Freq PRN Reason Stop Dose Admin Amoxicillin/Clavulanate Potassium 875 mg 10/31/23 21:09 10/31/23 22:13 Amoxicillin/Potassium Clav 875 Mg Tablet PO 10/31/23 21:10 875 mg ONCE ONE Administration Medical Decision Making Differential Diagnosis Differential Diagnoses: The differential diagnosis associated with the presentation includes (COVID 19 infection, influenza, RSV, bacterial sinusitis, ACS.) Admission/Observation Consideration of admission/observation: Escalation of care including admission/observation considered Lab Data MDM Lab Attestation statement: I reviewed the patient's lab results. Labs: Lab Results 10/31/23 10/31/23 10/31/23 Range/Units 18:46 19:42 21:41 Troponin I High Sens < 2.7 (<3.5-17.0) ng/L Urine Color Urine Appearance Urine pH (5.0-9.0) Ur Specific [place] (1.005-1.025) Urine Protein (Neg-Trace) mg/dL Urine Glucose (UA) (Negative) mg/dL Urine Ketones (Negative) mg/dL Urine Blood (Negative) Urine Nitrite (Negative) Ur Leukocyte Esterase (Negative) Urine RBC (0-2) /HPF Urine WBC (0-5) /HPF Ur Squamous Epith Cells (0-2) /HPF Calcium Oxalate Crystal Urine Bacteria (None Seen) Hyaline Casts (0-2) /LPF Urine Test (NEGATIVE) Urine Opiates Screen (Not Detect) Ur Buprenorphine Scrn (Not Detect) ng/mL Ur Oxycodone Screen (Not Detect) ng/mL Urine Methadone Screen (Not Detect) ng/mL Urine Fentanyl Screen (Not Detect) Ur Barbiturates Screen (Not Detect) Ur Phencyclidine Scrn (Not Detect) Ur Amphetamines Screen (Not Detect) U Benzodiazepines Scrn (Not Detect) Urine Cocaine Screen (Not Detect) U Marijuana (THC) Screen (Not Detect) COVID-19 (JD) Negative (Negative) COVID-19 Clin Com See Note Influenza Type A (PCR) NEGATIVE (Negative) Influenza Type B (PCR) NEGATIVE (Negative) RSV RNA Qual (PCR) NEGATIVE (Negative) SARS-CoV-2 RNA (RT-PCR) NEGATIVE (Negative) 10/31/23 10/31/23 Range/Units 21:43 21:44 Troponin I High Sens (<3.5-17.0) ng/L Urine Color Yellow Urine Appearance Clear Urine pH 6.0 (5.0-9.0) Ur Specific [place] 1.025 (1.005-1.025) Urine Protein Negative (Neg-Trace) mg/dL Urine Glucose (UA) Negative (Negative) mg/dL Urine Ketones Trace (Negative) mg/dL Urine Blood Negative (Negative) Urine Nitrite Negative (Negative) Ur Leukocyte Esterase Small (1+) H (Negative) Urine RBC 0-2 (0-2) /HPF Urine WBC 0-5 (0-5) /HPF Ur Squamous Epith Cells 6-10 (0-2) /HPF Calcium Oxalate Crystal Present Urine Bacteria 1+ (None Seen) Hyaline Casts 0-2 (0-2) /LPF Urine Test NEGATIVE (NEGATIVE) Urine Opiates Screen Not Detected (Not Detect) Ur Buprenorphine Scrn Not Detected (Not Detect) ng/mL Ur Oxycodone Screen Not Detected (Not Detect) ng/mL Urine Methadone Screen Not Detected (Not Detect) ng/mL Urine Fentanyl Screen Not Detected (Not Detect) Ur Barbiturates Screen Not Detected (Not Detect) Ur Phencyclidine Scrn Not Detected (Not Detect) Ur Amphetamines Screen Not Detected (Not Detect) U Benzodiazepines Scrn Not Detected (Not Detect) Urine Cocaine Screen POSITIVE H (Not Detect) U Marijuana (THC) Screen Not Detected (Not Detect) COVID-19 (JD) (Negative) COVID-19 Clin Com Influenza Type A (PCR) (Negative) Influenza Type B (PCR) (Negative) RSV RNA Qual (PCR) (Negative) SARS-CoV-2 RNA (RT-PCR) (Negative) Independent Interpretation I performed an independent interpretation of an: EKG (Normal sinus rhythm at 92 beats per minutes, normal axis deviation, normal intervals, no ST-T changes.) Discharge Plan Discharge Clinical Impression: Left maxillary sinusitis, Acute frontal sinusitis Patient Disposition: Home, Self-Care Instructions: Sinusitis (ED) Prescriptions: New amoxicillin-pot clavulanate 875-125 mg tablet 1 tab PO BID Qty: 14 0RF No Action lidocaine 4 % adhesive patch,medicated 1 patch topical Q24H PRN (Reason: pain) Qty: 15 0RF Rx Instructions: may leave on for up to 12 hrs ibuprofen 800 mg tablet 800 mg PO Q8H PRN (Reason: pain) Qty: 30 0RF cyclobenzaprine 5 mg tablet 5 mg PO TID PRN (Reason: muscle spasm) Qty: 14 0RF methylprednisolone [Medrol] 4 mg tablet 4 mg PO DAILY Qty: 7 0RF ondansetron HCl [Zofran] 4 mg tablet 4 mg PO Q8H PRN (Reason: nausea and vomiting) Qty: 10 0RF famotidine [Pepcid] 20 mg tablet 20 mg PO DAILY Qty: 14 0RF albuterol sulfate 0.63 mg/3 mL solution for nebulization 1 vial inhalation Q4H PRN (Reason: wheezing) benzonatate [Tessalon Perles] 100 mg capsule 100 mg PO TID PRN (Reason: cough) Qty: 20 0RF prednisone 20 mg tablet 60 mg PO DAILY 5 Days Qty: 15 0RF metoclopramide HCl [Reglan] 10 mg tablet 10 mg PO Q6H PRN (Reason: nausea and vomiting) Qty: 14 0RF albuterol sulfate 90 mcg/actuation HFA aerosol inhaler 2 puff inhalation Q4-6H PRN (Reason: shortness of breath or wheezing) Qty: 8.5 0RF Print Language: Uzbek
[2023-10-31 19:05] LABS: COVID-19 Test Negative (Negative); IDNOW Serial# 08D9AD1C
--- OUTSIDE RECORDS SUMMARY | 2023-10-31 19:29 | XMS_ITS | Continuity of Care Document ---
Author Organization [facility] Address [address] [place] [address]- Care Team Providers Care Rattan Worker Name Role Phone Jorje RAHMAN, Radha Primary Care Physician [phone] Encounter [facility] [place] Date(s): 02/19/21 - 03/21/21 [facility] [address] [place] [id number]- Attending Physician: Staci Pike Admitting Physician: Staci Pike Referring Physician: trStaci Allergies, Adverse Reactions, Alerts Substance Reaction Severity Status penicillins Active Medications albuterol 90 mcg/inh inhalation powder 2 puffs, Inhalation, Every 4 hours, PRN as needed, # 1 each, 3 Refills, Maintenance, 06/02/15 16:25:16, Powder, 2 puffs Inhalation Every 4 hours,PRN:as needed Start Date: 06/02/15 Status: Ordered Flovent HFA 110 mcg/inh inhalation aerosol 2 puffs, Inhalation, 2 times a day, # 12 Gm, 3 Refills, Maintenance, 08/15/16 14:30:35, Aerosol Start Date: 08/15/16 Status: Ordered ibuprofen 600 mg oral tablet 1 tablet = 600 mg, By Mouth, 3 times a day, PRN as needed for pain, with food or milk, # 90 tablet,0 Refills, Maintenance, 04/10/15 14:25:29, Tablet, 1 tablet By Mouth 3 times a day,PRN:as needed for pain,Instr:with food or milk Start Date: 04/10/15 Status: Ordered Wellbutrin SR 150 mg/12 hours oral tablet, extended release 1 tablet = 150 mg, By Mouth, 2 times a day, Take 1 tablet once a day for 3 days, then take 1 tablet2 times a day, # 60 tablet, 0 Refills, Maintenance, 07/18/16 12:02:55, ER Tablet, Please write instructions in mozambican Start Date: 07/18/16 Status: Ordered Problem List Condition Effective Dates Status Health Status Inform ant Asthma(Confirmed) Active Chronic mid back pain(Confirmed) 1 Active Depression. seen [facility] 2012(Confirmed) Active H/O tubal ligation(Confirmed) 2 Active Insomnia(Confirmed) Active Migraine(Confirmed) Active Seasonal allergies(Confirmed) Active 1due to accident while in [place] in 2004 [id number] Social History Social History Type Response Smoking Status Current every day juevncio murrieta entered on: 04/10/15 Sex
--- OUTSIDE RECORDS SUMMARY | 2023-10-31 19:29 | XMS_ITS | Continuity of Care Document ---
Author Organization [facility] Address [address] [place] [address]- Care Team Providers Care Clay Dry Press Helper Name Role Phone Jorje RAHMAN, Radha Primary Care Physician [phone] [place] [facility] [place] 12/21/20 [facility] [address] [place] [id number] Attending Physician: Staci Pike Admitting Physician: AdmtrStaci Referring Physician: Admtr, Ar8 Allergies, Adverse Reactions, Alerts Substance Reaction Severity [...] 12:02:55, ER Tablet, Please write instructions in citizen [place] Start Date: 07/18/16 Status: Ordered Problem List Condition Effective Dates Status Health Status Inform ant Asthma(Confirmed) Active Chronic mid back pain(Confirmed) 1 Active Depression. seen [facility] 2012(Confirmed) Active H/O tubal ligation(Confirmed) 2 Active Insomnia(Confirmed) Active Migraine(Confirmed) Active Seasonal allergies(Confirmed) Active 1due to accident while in [place] in 2004 [id number] Social History Social History Type Response Smoking Status Current every day juvencio murrieta entered on: 04/10/15 Sex
--- OUTSIDE RECORDS SUMMARY | 2023-10-31 19:29 | XMS_ITS | Continuity of Care Document ---
Author Organization [facility] Address [address] [place] [address]- Care Team Providers Care Deputy City Clerk Name Role Phone Not on Staff, PCP Primary Care Physician Unavail able [place] [facility] [place] 09/22/19 - 09/22/[address] [address] [facility] Discharge Disposition: A-D/C Walkout Attending Physician: Not on Staff, Attending MD Admitting Physician: Not on Staff, Admitting MD Referring Physician: Not on Staff, Referring MD Allergies, Adverse Reactions, Alerts Substance Reaction Severity [...] 12:02:55, ER Tablet, Please write instructions in kazakh Start Date: 07/18/16 Status: Ordered Problem List Condition Effective Dates Status Health Status Inform ant Asthma(Confirmed) Active Chronic mid back pain(Confirmed) 1 Active Depression. seen [facility] 2012(Confirmed) Active H/O tubal ligation(Confirmed) 2 Active Insomnia(Confirmed) Active Migraine(Confirmed) Active Seasonal allergies(Confirmed) Active 1due to accident while in [place] in 2004 Vital Signs Most recent to oldest [Reference Range]: 1 2 Height 168 cm (09/22/19 3:24 PM) Weight 53.3 kg (09/22/19 3:24 PM) Oxygen Saturation [94-100 %] 99 % (09/22/19 3:24 PM) 98 % (09/22/19 3:03 PM) Pulse Rate [55-90 bpm] 80 bpm (09/22/19 3:24 PM) 80 bpm (09/22/19 3:03 PM) Body Mass Index [18.5-24.99] 18.88 (09/22/19 3:24 PM) Blood Pressure [90-138/55-84 mm Hg] 117/ 70mm Hg (09/22/19 3:24 PM) Respiratory Rate [16-30 br/min] 18 br/mi n (09/22/19 3:24 PM) Temperature [96.8-100.4 DegF] 98.5 DegF (09/22/19 3:24 PM) Mode of Delivery (Oxygen) Room air (09/22/19 3:24 PM) Room air (09/22/19 3:03 PM) Blood pressure sites Arm, left (09/22/19 3:24 PM) Temperature Route Oral (09/22/19 3:24 PM) Dry Weight 53.3 kg (09/22/19 3:24 PM) Social History Social History Type Response Smoking Status Current every day juvencio murrieta entered on: 04/10/15 Sex
--- OUTSIDE RECORDS SUMMARY | 2023-10-31 19:29 | XMS_ITS | Continuity of Care Document ---
Author Organization [facility] Address [address] [place] [address]- Care Team Providers Care Parts Sales Counterperson Name Role Phone Jorje RAHMAN, Radha Primary Care Physician [place] [facility] [place] 07/04/21 - 07/05/[address] [address]- Encounter Diagnosis Shortness of breath(Final) - 07/05/21 Discharge Disposition: A-D/C Home Attending Physician: Jessie Jean MD Admitting Physician: Jessie Jean MD Referring Physician: Not on Staff, Referring [...] 12:02:55, ER Tablet, Please write instructions in moldovan Start Date: 07/18/16 Status: Ordered Problem List Condition Effective Dates Status Health Status Inform ant Asthma(Confirmed) Active Chronic mid back pain(Confirmed) 1 Active Depression. seen [facility] 2012(Confirmed) Active H/O tubal ligation(Confirmed) 2 Active Insomnia(Confirmed) Active Migraine(Confirmed) Active Seasonal allergies(Confirmed) Active 1due to accident while in [place] in 2004 Results Radiology Reports * Exam Date Time Procedure Performing Provider Status 07/05/21 12:07 AM Chest 2 Views Frontal and Lat Ivett Malone; Auth (Verified) Notes: (Chest 2 Views Frontal and Lat) Reason For Exam: Chest Pain;Other: RESULT: Chest 2 Views Frontal and Lat Chest 2 Views Frontal and Lat Hx of Present Illness: Panic Attack; Reason: Other:; Chest Pain; Clinical Question(s): CHF COMPARISON: 05/29/2012. FINDINGS: LINES AND TUBES: None. LUNGS AND PLEURA: Clear lungs. Normal pulmonary vascularity. No pleural effusion. No pneumothorax. HEART, MEDIASTINUM AND STEPHANY: Heart is normal in size. Normal upper mediastinal and hilar contour. BONES AND SOFT TISSUES: No acute abnormality. IMPRESSION: No acute abnormality. No interval change. WSN: [id number] Ordering Physician: Lucy Guillen Dictated By: Silvio Alvarez MD, V Dictated Date/Time: 07/05/21 7:57 am Reviewed By: Silvio Alvarez MD, V Signed By: Silvio Alvarez MD, V Signed Date/Time: 07/05/21 7:57 am Transcribed By: MARTIR Transcribed Date/Time: 07/05/21 7:57 am Vital Signs Most recent to oldest [Reference Range]: 1 2 Oxygen Saturation [94-100 %] 100 % (07/05/21 1:04 AM) 100 % (07/04/21 10:31 PM) Pulse Rate [55-90 bpm] 80 bpm (07/05/21 1:04 AM) 143 bpm *H* (07/04/21 10:31 PM) Blood Pressure [90-138/55-84 mm Hg] 108/ 61mm Hg (07/05/21 1:04 AM) 133/78mm Hg (07/04/21 10:31 PM) Respiratory Rate [16-30 br/min] 16 br/mi n (07/05/21 1:04 AM) 35 br/min *H* (07/04/21 10:31 PM) Temperature [96.8-100.4 DegF] 97.3 DegF (07/04/21 10:31 PM) Liters per Minute 2 L/min (07/04/21 10:31 PM) Mode of Delivery (Oxygen) Nasal cannula (07/04/21 10:31 PM) Blood pressure sites Arm, left (07/04/21 10:31 PM) Temperature Route Oral (07/04/21 10:31 PM) Social History Social History Type Response Smoking Status Current every day juvencio murrieta entered on: 04/10/15 Sex
--- OUTSIDE RECORDS SUMMARY | 2023-10-31 19:29 | XMS_ITS | Continuity of Care Document ---
Author Organization [facility] Address [address] [place] [id number]- Care Team Providers Care Fitness Technician Name Role Phone Jorje RAHMAN, Radha Primary Care Physician Encounter [facility] [place] Date(s): 06/17/21 - 06/17/[address] [address]- Encounter Diagnosis Occasional tremors(Final) - 06/17/21 Anxiety(Final) - 06/17/21 Eating disorder(Final) - 06/17/21 Discharge Disposition: A-D/C Home Attending Physician: Rasheed Snow MD Admitting Physician: Rasheed Snow MD Referring Physician: Not on Staff, Referring [...] 12:02:55, ER Tablet, Please write instructions in ukrainian Start Date: 07/18/16 Status: Ordered Problem List Condition Effective Dates Status Health Status Inform ant Asthma(Confirmed) Active Chronic mid back pain(Confirmed) 1 Active Depression. seen [facility] 2012(Confirmed) Active H/O tubal ligation(Confirmed) 2 Active Insomnia(Confirmed) Active Migraine(Confirmed) Active Seasonal allergies(Confirmed) Active 1due to accident while in [place] in 2004 [id number] Vital Signs Most recent to oldest [Reference Range]: 1 2 3 Oxygen Saturation [94-100 %] 100 % (06/17/21 7:44 AM) 99 % (06/17/21 6:06 AM) 100 % (06/17/21 5:43 AM) Pulse Rate [55-90 bpm] 96 bpm *H* (06/17/21 7:44 AM) 80 bpm (06/17/21 6:06 AM) 65 bpm (06/17/21 5:43 AM) Blood Pressure [90-138/55-84 mm Hg] 92/56mm Hg (06/17/21 7:44 AM) 98/67mm Hg (06/17/21 6:06 AM) 113/82mm Hg (06/17/21 5:43 AM) Respiratory Rate [16-30 br/min] 13 br/min *L* (06/17/21 7:44 AM) 18 br/min (06/17/21 6:06 AM) 20 br/min (06/17/21 5:43 AM) Temperature [96.8-100.4 DegF] 98.3 DegF (06/17/21 7:44 AM) 98.4 DegF (06/17/21 5:43 AM) 98.4 DegF (06/17/21 4:18 AM) Mode of Delivery (Oxygen) Room air (06/17/21 7:44 AM) Room air (06/17/21 6:06 AM) Room air (06/17/21 5:43 AM) Blood pressure sites Arm, left (06/17/21 7:44 AM) Arm, right (06/17/21 5:43 AM) Arm, right (06/17/21 4:20 AM) Temperature Route Oral (06/17/21 7:44 AM) Oral (06/17/21 5:43 AM) Oral (06/17/21 4:18 AM) Social History Social History Type Response Smoking Status Current every day juvencio murrieta entered on: 04/10/15 Sex
--- OUTSIDE RECORDS SUMMARY | 2023-10-31 19:29 | XMS_ITS | Continuity of Care Document ---
Author Organization [facility] Address [address] [place] [address]- Care Team Providers Care Insole Beveler Name Role Phone Jorje RAHMAN, Radha Primary Care Physician En[place] [facility] [place] Date(s): 06/13/22 - 06/13/[address] [address]- Discharge Disposition: A-D/C Walkout Attending Physician: Not [...] 12:02:55, ER Tablet, Please write instructions in bulgarian Start Date: 07/18/16 Status: Ordered Problem List Condition Confirmation Course Effective Dates Status Health St [facility] Informant Asthma Confirmed Active Chronic mid back pain 1 Confirmed Active Depression. seen [facility] 2012 Confirmed Active H/O tubal ligation 2 Confirmed Active Insomnia Confirmed Active Migraine Confirmed Active Seasonal allergies Confirmed Active Underweight Confirmed Active 1due to accident while in [place] in 2004 [id number] Social History Social History Type Response Smoking Status Never (less than 100 in lifetime) entered on: 12/14/21 Sex Patient Care team information Care Team Personnel Name: Radha Recinos NP Position: S Outreach Member Role: PCP Address: Address: [address] [place] [address]- Care Team Related Persons Name: BAUTISTA ARNOLD Name: PER PT NO, CONTACTS
--- OUTSIDE RECORDS SUMMARY | 2023-10-31 19:29 | XMS_ITS | Continuity of Care Document ---
Author Organization [facility] ter Address [address] [place] [address]- Care Team Providers Care Sucker Machine Operator Name Role Phone Jorje RAHMAN, Radha Primary Care Physician [place] [facility] [place]14[place] - 12/14/[address] [address]- Discharge Disposition: A-D/C Home Attending Physician: Jose A Rosas MD Admitting Physician: Jose A Rosas MD Referring Physician: Not on Staff, Referring [...] 12:02:55, ER Tablet, Please write instructions in guatemalan Start Date: 07/18/16 Status: Ordered Problem List Condition Effective Dates Status Health Status Inform ant Asthma(Confirmed) Active Chronic mid back pain(Confirmed) 1 Active Depression. seen [facility] 2012(Confirmed) Active H/O tubal ligation(Confirmed) 2 Active Insomnia(Confirmed) Active Migraine(Confirmed) Active Seasonal allergies(Confirmed) Active Underweight(Confirmed) Active 1due to accident while in [place] in 2004 Vital Signs Most recent to oldest [Reference Range]: 1 2 3 Height 168 cm (12/14/21 7:26 AM) 168 cm (12/14/21 7:21 AM) Weight 50 kg (12/14/21 7:26 AM) 50 kg (12/14/21 7:21 AM) Oxygen Saturation [94-100 %] 100 % (12/14/21 11:33 AM) 100 % (12/14/21 9:31 AM) 100 % (12/14/21 7:26 AM) Pulse Rate [55-90 bpm] 89 bpm (12/14/21 11:33 AM) 96 bpm *H* (12/14/21 9:31 AM) 110 bpm *H* (12/14/21 7:26 AM) Body Mass Index [18.5-24.99] 17.72 *L* (12/14/21 7:26 AM) Blood Pressure [90-138/55-84 mm Hg] 117/70mm Hg (12/14/21 11:33 AM) 123/93mm Hg (12/14/21 9:31 AM) 142/97mm Hg *H* (12/14/21 7:26 AM) Respiratory Rate [16-30 br/min] 18 br/min (12/14/21 11:33 AM) 22 br/min (12/14/21 7:26 AM) Temperature [96.8-100.4 DegF] 98.9 DegF (12/14/21 11:33 AM) 98.4 DegF (12/14/21 9:31 AM) 99.1 DegF (12/14/21 7:26 AM) Mode of Delivery (Oxygen) Room air (12/14/21 11:33 AM) Room air (12/14/21 9:31 AM) Room air (12/14/21 7:26 AM) Blood pressure sites Arm, right (12/14/21 11:33 AM) Arm, right (12/14/21 9:31 AM) Arm, right (12/14/21 7:26 AM) Temperature Route Oral (12/14/21 11:33 AM) Temporal (12/14/21 9:31 AM) Oral (12/14/21 7:26 AM) Dry Weight 50 kg (12/14/21 7:26 AM) 50 kg (12/14/21 7:21 AM) Dry Weight Obtained Via Bed scale (12/14/21 7:21 AM) Social History Social History Type Response Smoking Status Never (less than 100 in lifetime) entered on: 12/14/21 Sex
--- OUTSIDE RECORDS SUMMARY | 2023-10-31 19:29 | XMS_ITS | Continuity of Care Document ---
Author Organization [facility] Address [address] [place] [address]- Care Team Providers Care Manometer Technician Name Role Phone Jorje RAHMAN, Radha Primary Care Physician [phone] Encounter [facility] Date(s): 11/06/22 - 11/06/[address] [address]- Encounter Diagnosis Headache(Final) - 11/06/22 Discharge Disposition: A-D/C Home Attending Physician: Sharmin GARCIA, Jose Crouch Admitting Physician: Sharmin GARCIA, Jose Crouch Referring Physician: Not on Staff, Referring MD Allergies, Adverse Reactions, Alerts Substance Reaction Severity Status penicillins Active Medications albuterol 90 mcg/inh inhalation powder 2 puffs, Inhalation, Every 4 hours, PRN as needed, # 1 each, 3 Refills, Maintenance, 06/02/15 16:25:16, Powder, 2 puffs Inhalation Every 4 hours,PRN:as needed Start Date: 06/02/15 Status: Ordered doxycycline hyclate 100 mg oral capsule 1 capsule = 100 mg, By Mouth, 2 times a day, for 10 days, # 20 capsule, 0 Refills, Acute 11/16/22 18:23:00 EDT, 11/06/22 18:23:00 EDT, Capsule, [id number], Partial fill upon patient request if the prescription is for a schedule II opioid drug.... Start Date: 11/06/22 Stop Date: 11/16/22 Status: Ordered Flovent HFA 110 mcg/inh inhalation [...] or milk Start Date: 04/10/15 Status: Ordered Toradol Inj 10 mg, Injection, IV Push Slowly, Once, STAT, 11/06/22 17:19:00 EDT, Stop date 11/06/22 17:19:00 EDT Start Date: 11/06/22 Stop Date: 11/06/22 Status: Completed Wellbutrin SR 150 mg/12 hours oral tablet, extended release 1 tablet = 150 mg, By Mouth, 2 times a day, Take 1 tablet once a day for 3 days, then take 1 tablet2 times a day, # 60 tablet, 0 Refills, Maintenance, 07/18/16 12:02:55, ER Tablet, Please write instructions in nauruan Start Date: 07/18/16 Status: Ordered Problem List Condition Confirmation Course Effective Dates Status Health St [facility] Informant Asthma Confirmed Active Chronic mid back pain 1 Confirmed Active Depression. seen [facility] 2012 Confirmed Active H/O tubal ligation 2 Confirmed Active Insomnia Confirmed Active Migraine Confirmed Active Seasonal allergies Confirmed Active 1due to accident while in [place] in 2004 Results Orders for Microbiology Reports Name Date Group A Strep Screen and Culture 11/06/22 Microbiology Reports TEST:Group A Strep Screen and Culture STATUS:Unauthenticated BODY SITE: SOURCE:THROAT COLLECTED DATE/TIME:11/06/22 2:08 PM Group A Strep Screen and Culture SPECIMEN DESCRIPTION : THROAT SWAB SPECIAL REQUESTS : NONE DIRECT EXAM : RAPID GROUP A RESULT IS NEGATIVE, REFER TO CULTURE RESULT. REPORT STATUS : PRELIMINARY REPORT Vital Signs Most recent to oldest [Reference Range]: 1 2 3 Height 160 cm (11/06/22 6:14 PM) 160 cm (11/06/22 4:13 PM) 160 cm (11/06/22 1:57 PM) Weight 55.1 kg (11/06/22 6:14 PM) 55.1 kg (11/06/22 4:13 PM) 55.1 kg (11/06/22 1:57 PM) Oxygen Saturation [94-100 %] 100 % (11/06/22 6:14 PM) 99 % (11/06/22 4:13 PM) 98 % (11/06/22 1:57 PM) Pulse Rate [55-90 bpm] 89 bpm (11/06/22 6:14 PM) 94 bpm *H* (11/06/22 4:13 PM) 94 bpm *H* (11/06/22 1:57 PM) Body Mass Index [18.5-24.99 kg/m2] 21.52 kg/m2 (11/06/22 6:14 PM) 21.52 kg/m2 (11/06/22 4:13 PM) Blood Pressure [90-138/55-84 mm Hg] 118/85mm Hg (11/06/22 6:14 PM) 139/88mm Hg *H* (11/06/22 4:13 PM) 119/87mm Hg (11/06/22 1:57 PM) Respiratory Rate [16-30 br/min] 16 br/min (11/06/22 6:14 PM) 20 br/min (11/06/22 6:07 PM) 16 br/min (11/06/22 4:13 PM) Temperature [96.8-100.4 DegF] 97.7 DegF (11/06/22 1:57 PM) Mode of Delivery (Oxygen) Room air (11/06/22 6:14 PM) Room air (11/06/22 4:13 PM) Room air (11/06/22 1:57 PM) Blood pressure sites Arm, left (11/06/22 4:13 PM) Arm, left (11/06/22 1:57 PM) Temperature Route Temporal (11/06/22 1:57 PM) Dry Weight 55.1 kg (11/06/22 6:14 PM) 55.1 kg (11/06/22 4:13 PM) 55.1 kg (11/06/22 1:57 PM) Weight Obtained Via Standing scale (11/06/22 1:57 PM) Dry Weight Obtained Via Standing scale (11/06/22 1:57 PM) Social History Social History Type Response Smoking Status Never (less than 100 in lifetime) entered on: 12/14/21 Sex Note * Sharmin GARCIA, Jose Crouch: PERFORM Event Display: Patient Education Leaflets Authored Date: [id number] Sinusitis (Antibiotic Treatment) ?? 120239lv Sinusitis (tratamiento con antibi??ticos) Los senos paranasales son cavidades llenas de aire dentro de los huesos de la elizabeth. Se conectan conla parte interna de la nariz.??La sinusitis es [place]ell inflamaci??n del tejido que recubre la cavidad de los senos paranasales. Mahesh inflamaci??n puede presentarse vivian un resfr??o. Tambi??n puede ocurrir debido a la alergia al polen y a otras part??culas que haya en el aire. La sinusitis puede provocar congesti??n de los senos paranasales y sensaci??n de tener la suad pesada . [place]ell infecci??n delos senos paranasales causa fiebre, dolor de suad y dolor en la elizabeth. Suele ángel secreciones verdosas o amarillentas de la nariz o por la parte posterior de la garganta (goteo posnasal). Se recetan antibi??ticos para tratar esta afecci??n. Cuidados en el hogar ??? Barnes todos los antibi??ticos seg??n las indicaciones. No deje de usarlos, incluso si se siente mejor. ??? Reyna lucas agua, t?? caliente y otros l??quidos seg??n le haya indicado el proveedor de atenci??n m??dica. Eso diluye la mucosidad. Tambi??n puede facilitar el drenaje de los senos paranasales. ??? Aplique calor sobre las ??reas de la elizabeth que le duelen. Use lowell toalla empapada en oneida. Tambi??n puede pararse en la ducha y dejar que le caiga el oneida sobre la elizabeth. Utilizar un vaporizador y pomada de mentol vivian la noche tambi??n puede ayudar aaliviar los s??ntomas.? Un expectorante que contenga guaifenesina ayuda a diluir la mucosidad y a facilitar el drenaje de los senos paranasales. Hable con rascon proveedor o rascon farmac??utico antes de usar medicamentos de venta cayden si tiene alguna pregunta sobre los efectos secundarios. ??? Puedeusar alg??n descongestivo de venta cayden, a menos que le hayan recetado alg??n medicamento parecido. Los aerosoles nasales son los que tienen efecto m??s r??pido. Use alguno que contenga fenilefrina u oximetazolina. Mara, sople la nariz suavemente. Luego use el aerosol. No use estos medicamentoscon mayor frecuencia que la indicada en el prospecto. Si lo hace, los s??ntomas pueden empeorar. Rosales bi??n puede mike comprimidos que contengan pseudoefedrina. No use productos que combinen diferentes medicamentos. Podr??an aumentar los efectos secundarios. Maggi los prospectos. Tambi??n puede pedir ayuda al farmac??utico. (Las personas con presi??n arterial will no deber??an usar descongestivos. Estos pueden subir la presi??n arterial). Hable con rascon proveedor o rascon farmac??utico si tiene alguna pr egunta. ??? Los antihistam??nicos de venta cayden son ??tiles si la sinusitis se debe a lowell alergia.Hable con rascon proveedor o rascon farmac??utico si tiene alguna pregunta respecto del medicamento. ??? Puede aliviar los s??ntomas con lavajes o irrigaci??n nasal. Es importante que use estos productos de la forma indicada. Use agua est??ril o soluci??n salina est??ril y no agua de grifo. El agua de grifo puede contener g??rmenes que causen lowell infecci??n en el cerebro. No enjuague con demasiada presi??n. Puede propagar la infecci??n a otras zonas de los senos paranasales o la suad. Hable con rascon proveedor de atenci??n m??dica o farmac??utico si tiene dudas sobre estos productos. ??? Puede usar paracetamol o ibuprofeno para controlar el dolor, a menos que le hayan recetado otro analg??sico. Si tiene lowell enfermedad cr??wong del h??gado o de los ri??ones, o alguna vez tuvo ??lceras estomacales, hable con rascon proveedor de atenci??n m??dica antes de mike estos medicamentos. Nunca le d?? aspirinaa un dunia de 18??a??os sin consultar mara con rascon proveedor de atenci??n m??dica. Puede causar da??os graves al h??gado. ??? No fume. Travilah puede empeorar los s??ntomas. ?? Visita de seguimiento Asista a las citas de seguimiento con rascon proveedor de atenci??n m??dica seg??n le hayan indicado. ?? Cu??ndo buscar atenci??n m??dica Llame a rascon proveedor de atenci??n m??dica si ocurre algo de lo siguiente: ??? Dolor de suad o dolor en la elizabeth que empeora ??? Los s??ntomas no desaparecen en 10??d??as ??? Fiebre de??100.4?F (38?C)??o superior, o seg??n le indique rascon proveedor de atenci??n m??dica ?? Cu??ndo llamar al?? 911 Llame al?? 911 si ocurre algo de lo siguiente: ??? Convulsiones ??? Dificultad para respirar ??? Sesiente mareado o d??may ??? U??as, piel o labios de color azulado, regine o brendan ??? Dolor intenso que no se rachel ??? Rigidez en el curtis ??? Somnolencia inusual o confusi??n ??? Problemas de la vista; por ejemplo, visi??n borrosa o doble ??? Hinchaz??n de la frente o los p??rpados ?? Prevenci??n Puede adoptar las siguientes medidas para prevenir lowell infecci??n: ??? Mantenga buenos h??bitos higi??nicos de lavado de rubén. ??? Evite el contacto cercano con personas que tengan dolor de garganta, resfriados u otras infecciones de las v??as respiratorias superiores. ??? No fume y evite exponerse al humo de cigarrillos de otras personas. ??? Mantenga al d??a todas kevin vacunas. ?? Last Reviewed Date: 2021 ?? [id number] The interspireSubmit. Todos los derechos reservados. Esta informaci??n no pretende sustituir la atenci??n m??dica profesional. S??lo rascon m??dico puede diagnosticar y tratar un problema de nick. ?? Patient Care team information Care Team Personnel Name: Steph Petitasha Position: [facility] ED OA Name: Sharmin GARCIA, Jose Crouch Position: [facility] Resident Member Role: Admitting Physician Address: Address: [address] [place] [address] Name: Jeaneth Mendoza RN Position: [facility] ED RN W/OE and Tasks Member Role: Patient Care Provider Care Team Related Persons Name: BAUTISTA ARNOLD Name: PER PT NO, CONTACTS
--- OUTSIDE RECORDS SUMMARY | 2023-10-31 19:29 | XMS_ITS | Continuity of Care Document ---
Author Organization [facility] Address [address] [place] [address]- Care Team Providers Care Twisting Press Operator Name Role Phone Jorje RAHMAN, Radha Primary Care Physician [id number] Date[facility] - [facility] [address] [place] [id number] Attending Physician: Krishna Beard MD Admitting Physician: Krishna Beard MD Referring Physician: Reny Hedrick NP Allergies, Adverse Reactions, Alerts Substance Reaction Severity [...] 12:02:55, ER Tablet, Please write instructions in amharic Start Date: 07/18/16 Status: Ordered Problem List Condition Effective Dates Status Health Status Inform ant Asthma(Confirmed) Active Chronic mid back pain(Confirmed) 1 Active Depression. seen [facility] 2012(Confirmed) Active H/O tubal ligation(Confirmed) 2 Active Insomnia(Confirmed) Active Migraine(Confirmed) Active Seasonal allergies(Confirmed) Active 1due to accident while in [place] in [address]405 Social History Social History Type Response Smoking Status Current every day juvencio murrieta entered on: 04/10/15 Sex
[2023-10-31 20:32] LABS: Influenza A PCR NEGATIVE (Negative); Influenza B PCR NEGATIVE (Negative); Resp Syncy Virus RNA Qual PCR NEGATIVE (Negative); SARS COV2 PCR INHOUSE NEGATIVE (Negative)
[2023-10-31 20:59] VITALS: BP 106/63; PULSE 73; RESP 17; TEMP 37.1; O2SAT 100
[2023-10-31 22:00] LABS: Appearance Urine Clear; Color Urine Yellow; Glucose Urine UA Negative (Negative); Leukocyte Esterase Urine Small (1+) (Negative); Nitrite Urine Negative (Negative); Specific Gravity - Urine 1.025 (1.005-1.025); UMIC TRIGGER UACC YES; Urine Blood Negative (Negative); Urine Ketones Trace mg/dL (Negative); Urine Protein Negative (Neg-Trace)
[2023-10-31 22:01] LABS: UPreg QC Valid YES; Urine Pregnancy NEGATIVE (NEGATIVE)
[2023-10-31 22:11] LABS: Amphetamine Screen Urine Not Detected (Not Detect); Barbiturates, Urine Not Detected (Not Detect); Benzodiazepines Screen Urine Not Detected (Not Detect); Buprenorphine Scr Not Detected (Not Detect); Cannabinoid Screen Urine Not Detected (Not Detect); Cocaine Screen Urine POSITIVE (Not Detect); Fentanyl, urine Not Detected (Not Detect); Methadone Screen, Urine Not Detected (Not Detect); Opiate Screen Urine Not Detected (Not Detect); Oxycodone Screen Urine Not Detected (Not Detect); Phencyclidine Screen Urine Not Detected (Not Detect)
[2023-10-31] MEDS: Amoxicillin/Potassium Clav 875 MG TABLET PO (22:13)
[2023-10-31 22:22] LABS: Troponin-I High Sensitivity < 2.7 ng/L (<3.5-17.0)
[2023-10-31 22:34] LABS: Bacteria Urine 1+ (None Seen); Calcium Oxalate Crystals Urine Present; Hyaline Casts Urine 0-2 /LPF (0-2); RBC Urine 0-2 /HPF (0-2); UACC Culture Trigger YES; WBC Urine 0-5 /HPF (0-5)
--- NOTE | 2023-10-31 22:40 | MHC.EDTECH ---
This tech was approached by pt and stated I want to leave. Tech explained it was safest to wait for an official discharge as there were pending results. Pt stated I want you to call me with my results. Tech attempted to explain that the tech was unable to call the pt with her results, as she was not the doctor. [facility] continued to try and explain that the doctor would be over as soon as they were be able to. Pt stated you are my nurse and are not doing anything. Tech explained that she was not the nurse and was a tech. Pt then stated then what are you even doing here. Tech stated she would go get the nurse. Tech made the RN aware of the situation and RN attempted to talk to the pt.
--- NOTE | 2023-10-31 23:36 | PC.NURSE ---
pt requested to leave prior to staff being able to provide discharge documents. she did not want to wait and declined the oppportunity to speak with staff at length regarding plan
== END 2023-10-31 22:15 | disposition home or self-care (01) ==
PROVIDERS: Emergency Medicine; Physician Assistant; Emergency Provider Emergency Medicine
DX: J01.80 Other acute sinusitis (principal); J45.909 Unspecified asthma, uncomplicated; Z03.818 Encounter for observation for suspected exposure to other biological agents ruled out; Z79.899 Other long term (current) drug therapy
CPT/HCPCS: 0241U; 36415; 80307; 81001; 81003; 81025; 84484; 87086; 87635; 93005; 99283; 99284

== ENCOUNTER → 2023-10-31 18:41 | Outpatient (BNV) | payer MEDICAID, SELFPAY | PROVIDERS: Emergency Provider Emergency Medicine; Visit Provider Internal Medicine | DX: R11.2 Nausea with vomiting, unspecified (principal); R19.7 Diarrhea, unspecified | CPT/HCPCS: 93010 ==

== ENCOUNTER 2024-11-29 14:02 | Outpatient (REF) | payer MEDICAID, SELFPAY ==
--- OUTSIDE RECORDS SUMMARY | 2024-11-29 14:10 | XMS_ITS | Clinical Summary ---
Author Organization [facility] Address [address] [place] [address] Care Team Providers Care Surgical Services Coordinator Name Role Phone Nakia Denise DO Primary Care Provider [phone] Medical History Medical History Date Comments Asthma in adult, mild persis tent, uncomplicated DX:Asthma in adult, mild per sistent, uncomplicated Social History Tobacco Use Types Packs/Day Years Used Date Smoking Tobacco: Every Day Cigarettes Smokeless Tobacco: Never Alcohol Use Standard Drinks/Week Comments Yes 0 (1 standard drink = 0.6 oz pur e alcohol) Comments Unknown Sex and Gender Information Value Date Recorded Sex Assigned at Not on file Legal Sex Female 5:06 AM EST Gender Identity Not on file Sexual Orientation Not on file Obstetrics History Last Filed Vital Signs Vital Sign Reading Time Taken Comments Blood Pressure 122/64 06/24/2022 4:07 PM EST Pulse 93 06/24/2022 4:07 PM EST Temperature - - Respiratory Rate - - Oxygen Saturation - - Inhaled Oxygen Concentration - - Weight 57.4 kg (126 lb 9.6 oz) 06/24/2022 4:07 P M EST Height 160 cm (5' 3 ) 06/24/2022 4:07 PM EST Body Mass Index 22.43 06/24/2022 4:07 PM EST Plan of Treatment Health Maintenance Due Date Last Done Comments Breast Cancer Screening 1984 Hepatitis B Vaccines (1 of 3 - 19+ 3-dose series) 08/05/2003 Pneumococcal Vaccine: Pediat rics (0 to 5 Years) and At-Risk Patients (6 to 49 Years) (1 of 2 - PCV) 08/05/2003 Cervical Cancer Screening: P ap Smear 2005 HIV Screening 03/31/2022 Hepatitis C Screening 03/31/2022 Social Influencers of Health Screening 03/31/2022 COVID-19 Vaccine (1 - 2023-2 5 season) 2023 Depression Screening 04/28/2024 Influenza Vaccine (#1) 2024 DTaP,Tdap,and Td Vaccines (2 - Td or Tdap) 12/17/2028 12/17/2018 HIB Vaccines Aged Out No longer eligi ble based on patient's age to complete this topic HPV Vaccines Aged Out No longer eligi ble based on patient's age to complete this topic Hepatitis A Vaccines Aged Out No long er eligible based on patient's age to complete this topic IPV Vaccines Aged Out No longer eligi ble based on patient's age to complete this topic MMR Vaccines Aged Out No longer eligi ble based on patient's age to complete this topic Meningococcal ACWY Vaccine Aged Out N o longer eligible based on patient's age to complete this topic Meningococcal B Vaccine Aged Out No l onger eligible based on patient's age to complete this topic RSV Immunization Patients Un barbara 20 months Aged Out No longer eligible b ased on patient's age to complete this topic Varicella Vaccines Aged Out No longer eligible based on patient's age to complete this topic Care Teams Surgical Services Coordinator Relationship Specialty Start Date End Date Nakia Denise DO PCP - General Internal Medicine 02/19/22
--- OUTSIDE RECORDS SUMMARY | 2024-11-29 14:10 | XMS_ITS ---
Author Name [facility] Organization Unknown Care Team Organization Name Specialty Phone Email Start Date End Da te [facility] Nakia Denise DO Primary Care 10/04/202211/26 [facility] Maryuri Garcia MD Primary Care 07/03/2022 12/15/2023 [facility] Primary Care 03/05/2022 12/15/19 24
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
[2024-11-29 16:14] LABS: MANUAL DIFF FLAG NO
[2024-11-29 16:26] LABS: Hematocrit 38.3 % (37.0-47.0); Hemoglobin 12.2 g/dl (12.0-16.0); Imm Gran Abs Auto 0.02 X10*3/uL (0.00-0.03); Imm Gran Pct Auto 0.3 % (0.0-0.4); Lymphocytes Absolute Auto 1.7 X10*3/uL (1.2-4.9); Mean Corpuscular HGB Conc 31.9 g/dl (31.0-35.0); Mean Corpuscular Hemoglobin 28.6 pg (27.0-33.0); Mean Corpuscular Volume 89.7 fL (80.0-98.0); NRBC Abs Auto 0.000 X10*3/uL (0.0-0.012); NRBC Pct Auto 0.0 /100WBC (0.0-0.2); Platelet Count 307 X10*3/uL (160-400); Red Blood Count 4.27 X10*6/uL (4.20-5.50); White Blood Count 6.2 X10*3/uL (4.8-10.8)
[2024-11-29 16:42] LABS: Alanine Aminotransferase 16 U/L (0-31); Albumin Level 4.6 g/dL (3.5-5.0); Alkaline Phosphatase 62 U/L (39-117); Anion Gap 10 (12-20); Aspartate Amino Transferase 18 U/L (5-31); Blood Urea Nitrogen 14 mg/dL (9-16); Calcium 9.0 mg/dL (8.4-10.2); Carbon Dioxide 27 mmol/L (22-29); Chloride 104 mmol/L (96-108); Estimated Glomerular Filt Rate > 60; Potassium 4.1 mmol/L (3.3-5.1); Sodium 137 mmol/L (135-145); Total Protein 7.9 g/dL (6.5-8.0)
== END 2024-11-29 14:03 | disposition home or self-care (01) ==
LOC: HO.HHCL 14:02
PROVIDERS: PCP Internal Medicine; Visit Provider Internal Medicine
DX: L73.9 Follicular disorder, unspecified (principal)
CPT/HCPCS: 36415; 80053; 84443; 85025; 85652